=== PATIENT | female | born 1945 | race Caucasian/White ===

== ENCOUNTER 2017-04-13 18:16 | Emergency (ER) | payer MEDICARE, MEDICAID ==
--- NOTE | 2017-04-13 19:43 | ED Physician Documentation ---
PD HPI NVD - Stated complaint Stated Complaint: D/NAUSEA - Chief complaint Chief Complaint: Abd Pain - History obtained from History obtained from: Patient - History of Present Illness Timing - onset: Today Timing - details: Waxing and waning Review of Systems Constitutional: reports: Myalgias. denies: Fever, Chills Ears: denies: Drainage/discharge Nose: denies: Rhinorrhea / runny nose, Congestion Throat: denies: Sore throat, Swollen tonsils Cardiac: denies: Chest pain / pressure Respiratory: denies: Dyspnea, Cough GI: denies: Nausea Skin: denies: Rash, Lesions Neurologic: reports: Generalized weakness. denies: Focal weakness, Numbness, Near syncope PD PAST MEDICAL HISTORY - Past Medical History Past Medical History: Yes Cardiovascular: Hypertension, Valve disorder Respiratory: Asthma Neuro: Seizure disorder Endocrine/Autoimmune: HyPERthyroidism GI: Ulcers Psych: Depression, Anxiety Musculoskeletal: Osteoarthritis - Past Surgical History Past Surgical History: Yes General: Cholecystectomy HEENT: Cataracts, Tonsil/Adenoidectomy - Present Medications Home Medications: Ambulatory Orders Medication Instructions Recorded Confirmed Furosemide [Lasix] 20 mg PO DAILY 03/23/13 04/13/17 Primidone 250 mg PO BID 03/23/13 04/13/17 Aripiprazole [Abilify] 30 mg PO DAILY 04/28/14 04/13/17 Isosorbide Dinitrate 10 mg PO TID 04/28/14 04/13/17 Propranolol [Inderal] 10 mg PO BID 04/28/14 04/13/17 Clorazepate Dipotassium [Tranxene 7.5 mg PO BID 12/16/14 04/13/17 T-Tab] Hydroxyzine Pamoate 50 mg PO DAILY 04/25/16 04/13/17 Cephalexin [Keflex] 500 mg PO QID #20 capsule 04/13/17 Ondansetron HCl [Zofran] 4 mg PO Q6H PRN #15 tablet 04/13/17 - Allergies Allergies/Adverse Reactions: Allergies Allergy/AdvReac Type Severity Reaction Status Date / Time phenobarbital Allergy Intermediate Anxiety Verified 04/13/17 18:28 Penicillins Allergy swelling Verified 04/13/17 18:28 Sulfa (Sulfonamide Allergy Rash Verified 04/13/17 18:28 Antibiotics) Tetracyclines Allergy Anxiety Verified 04/13/17 18:28 - Social History Does the pt smoke?: No Smoking Status: Never smoker Does the pt drink ETOH?: No Does the pt have substance abuse?: No - Immunizations Immunizations are current?: Yes - POLST Patient has POLST: No PD ED PE NORMAL - Vitals Vital signs reviewed: Yes - General General: Alert and oriented X 3, No acute distress, Well developed/nourished - HEENT HEENT: Pharynx benign - Neck Neck: Supple, no meningeal sign - Cardiac Cardiac: RRR, No murmur - Respiratory Respiratory: Clear bilaterally - Abdomen Abdomen: Normal bowel sounds, Soft, Non tender, Non distended, No organomegaly, Other (moderately obese) - Back Back: No CVA TTP - Derm Derm: Normal color, Warm and dry - Extremities Extremities: No tenderness to palpate, No edema, No calf tenderness / cord - Neuro Neuro: Alert and oriented X 3, No motor deficit, Normal speech - Psych Psych: No: Normal affect (rather flat affect but conversant. ) Results - Vitals Vitals: Oxygen O2 Source Room air - Labs Labs: Microbiology 04/13/17 20:33 Urine Culture - Preliminary Urine,Clean Catch No growth Laboratory Tests 04/13/17 04/13/17 04/13/17 20:12 20:19 20:33 WBC 10.7 RBC 4.83 Hgb 15.1 Hct 44.1 MCV 91.3 MCH 31.3 H MCHC 34.3 RDW 13.0 Plt Count 283 MPV 7.3 L Neut # 4.6 Lymph # 4.6 H [place] # 1.1 H Eos # 0.3 Baso # 0.1 Absolute Nucleated RBC 0.00 Nucleated RBCs 0.0 Sodium 136 Potassium 3.9 Chloride 100 L Carbon Dioxide 27 Anion Gap 9.0 BUN 37 H Creatinine 0.7 Estimated GFR (MDRD) 83 L Glucose 99 Calcium 9.8 Magnesium 2.2 Total Bilirubin 0.4 AST 25 ALT 21 Alkaline Phosphatase 64 Total Protein 8.2 Albumin 4.2 Globulin 4.0 Albumin/Globulin Ratio 1.1 Lipase 36 Urine Color YELLOW Urine Clarity CLEAR Urine pH 7.0 Ur Specific [place] <=1.005 Urine Protein NEGATIVE Urine Glucose (UA) NEGATIVE Urine Ketones NEGATIVE Urine Occult Blood NEGATIVE Urine Nitrite NEGATIVE Urine Bilirubin NEGATIVE Urine Urobilinogen 0.2 (NORMAL) Ur Leukocyte Esterase SMALL H Urine RBC 0-5 Urine WBC 11-25 H Ur Squamous Epith Cells NONE SEEN Urine Bacteria Few Ur Microscopic Review INDICATED Urine Culture Comments INDICATED PD MEDICAL DECISION MAKING - ED course Complexity details: reviewed old records, reviewed results, considered differential, d/w patient Departure - Departure Disposition: 01 Home, Self Care Clinical Impression: Nausea UTI (urinary tract infection) Qualifiers: Urinary tract infection type: acute cystitis Hematuria presence: without hematuria Qualified Code(s): N30.00 - Acute cystitis without hematuria Condition: Stable Record reviewed to determine appropriate education?: Yes Instructions: ED UTI Cystitis Female Follow-Up: Devon Holden MD [Primary Care Provider] - Prescriptions: Cephalexin [Keflex] 500 mg PO QID #20 capsule Ondansetron HCl [Zofran] 4 mg PO Q6H PRN #15 tablet PRN Reason: Nausea / Vomiting Comments: Ondansetron if needed for nausea. Frequent fluids for good hydration. You do have a mild bladder infection and that may likely be causing the nausea today. Cephalexin 4 times a day for the next 5 days for that. Recheck if not improving over the next couple of days. Return sooner if worse. Discharge Date/Time: 04/13/17 22:03
[2017-04-13] MEDS ORDERED: ONDANSETRON ODT 4 MG TABLET TL STA (20:19)
[2017-04-13] MEDS ORDERED: ONDANSETRON ODT 4 MG TABLET ONE (20:39)
[2017-04-13 20:48] LABS: BASOPHILS # (AUTO) 0.1 10^3/uL (0.0-0.1); EOSINOPHILS # (AUTO) 0.3 10^3/uL (0.0-0.7); MEAN CORPUSCULAR HEMOGLOBIN 31.3 pg (27.0-31.0)
[2017-04-13 20:49] LABS: BASOPHILS % (AUTO) 0.7 %; EOSINOPHILS % (AUTO) 2.9 %; HCT - HEMATOCRIT 44.1 % (37.0-47.0); HGB - HEMOGLOBIN 15.1 g/dL (12.0-16.0); LYMPHOCYTES # (AUTO) 4.6 10^3/uL (1.5-3.5); LYMPHOCYTES % (AUTO) 43.1 %; MEAN CORPUSCULAR HGB CONC 34.3 g/dL (32.0-36.0); MEAN CORPUSCULAR VOLUME 91.3 fL (81.0-99.0); MEAN PLATELET VOLUME 7.3 fL (7.9-10.8); MONOCYTES # (AUTO) 1.1 10^3/uL (0.0-1.0); MONOCYTES % (AUTO) 10.4 %; NEUTROPHILS # (AUTO) 4.6 10^3/uL (1.5-6.6); NEUTROPHILS % (AUTO) 42.9 %; RED BLOOD COUNT 4.83 10^6/uL (4.20-5.40); UNCORRECTED WHITE BLOOD COUNT 10.7 x10^3/uL; WHITE BLOOD COUNT 10.7 x10^3/uL (4.8-10.8)
[2017-04-13 20:53] LABS: BILIRUBIN,URINE NEGATIVE (NEGATIVE)
[2017-04-13 20:55] LABS: UA w/ MICROSCOPIC CHARGE YES
[2017-04-13 21:00] LABS: ALBUMIN/GLOBULIN RATIO 1.1 (1.0-2.2); BILIRUBIN,TOTAL 0.4 mg/dL (0.2-1.0); CALCIUM 9.8 mg/dL (8.5-10.3); CREATININE 0.7 mg/dL (0.4-1.0); MAGNESIUM 2.2 mg/dL (1.7-2.8); POTASSIUM 3.9 mmol/L (3.5-5.0); TOTAL PROTEIN 8.2 g/dL (6.7-8.2)
[2017-04-13 21:11] LABS: UR CULTURE IF IND INDICATED
[2017-04-13 21:44] VITALS: BP 119/56
[2017-04-13] MEDS ORDERED: ONDANSETRON ODT 4 MG Prepack 2 TL PRN (21:45)
[2017-04-13] MEDS ORDERED: CEPHALEXIN 250 MG CAPSULE PO STA (21:45)
[2017-04-13] MEDS ORDERED: CEPHALEXIN 250 MG CAPSULE PO ONE (21:58)
[2017-04-13] MEDS ORDERED: ONDANSETRON ODT 4 MG Prepack 2 TL ONE (21:58)
== END 2017-04-13 22:03 | disposition home or self-care (01) ==
LOC: ED 18:16
DX: R11.0 Nausea (principal); N30.00 Acute cystitis without hematuria; I10 Essential (primary) hypertension
CPT/HCPCS: 36415; 80053; 81001; 83690; 83735; 85025; 87086; 99283; A9270; Q0162; 81003

== ENCOUNTER 2017-08-08 08:36 | Outpatient (CLI) | payer MEDICARE, MEDICAID | END 2017-08-08 08:37 | disposition EMS.NT | LOC: EMS 08:36 | PROVIDERS: ATTEND Surgery | DX: R19.7 Diarrhea, unspecified (principal) ==

== ENCOUNTER 2017-10-15 11:27 | Outpatient (CLI) | payer MEDICARE, MEDICAID ==
[2017-10-15 19:02] LABS: MEAN CORPUSCULAR HEMOGLOBIN 31.6 pg (27.0-31.0); MEAN CORPUSCULAR HGB CONC 33.2 g/dL (32.0-36.0); RED BLOOD COUNT 4.44 10^6/uL (4.20-5.40); WHITE BLOOD COUNT 10.5 x10^3/uL (4.8-10.8)
[2017-10-15 19:15] LABS: CALCIUM 9.3 mg/dL (8.5-10.3); CREATININE 0.7 mg/dL (0.4-1.0)
== END 2017-10-15 11:28 | disposition home or self-care (01) ==
LOC: LAB.WCP 11:27
PROVIDERS: ATTEND Physician Assistant Medical
DX: I50.9 Heart failure, unspecified (principal)
CPT/HCPCS: 36415; 80048; 83880

== ENCOUNTER 2017-10-23 07:28 | Outpatient (CLI) | payer MEDICARE, MEDICAID | END 2017-10-23 07:29 | disposition EMS.NT | LOC: EMS 07:28 | PROVIDERS: ATTEND Surgery | DX: R00.1 Bradycardia, unspecified (principal) ==

== ENCOUNTER 2017-10-23 10:17 | Outpatient (CLI) | payer MEDICARE, MEDICAID | END 2017-10-23 10:18 | disposition critical access hospital (66) | LOC: EMS 10:17 | PROVIDERS: ATTEND Surgery | DX: R10.9 Unspecified abdominal pain (principal) | CPT/HCPCS: A0425; A0429 ==

== ENCOUNTER 2017-10-23 10:34 | Emergency (ER) | payer MEDICARE, MEDICAID ==
[2017-10-23] MEDS ORDERED: LIDOCAINE VISCOUS 2% 15 ML UDC MM STA (12:25)
[2017-10-23] MEDS ORDERED: MAG HYDROX/AL HYDROX/SIMETH 30 ML UDC PO STA (12:25)
--- NOTE | 2017-10-23 12:27 | ED Physician Documentation ---
PD HPI ABD PAIN - Stated complaint Stated Complaint: ABD PX - Chief complaint Chief Complaint: Abd Pain - History obtained from History obtained from: Patient - History of Present Illness Timing - onset: Other (72-year-old woman chronic psychiatric disorder and stable delusions presents complaining of upper abdominal pain that started a few hours ago after eating a beef and green burrito and a glass of milk. Reportedly the paramedics have been out to her house for the last couple of days because she thought she was being poisoned, although she does not mention this to me. To me she is at her psychiatric baseline which is delusional but very cooperative. She is nauseous but has not vomited. She had a remote cholecystectomy but no other abdominal surgeries.) Review of Systems Constitutional: denies: Fever, Chills Cardiac: denies: Chest pain / pressure, Palpitations Respiratory: denies: Dyspnea, Cough GI: reports: Abdominal Pain, Nausea. denies: Vomiting, Constipation, Diarrhea, Hematemesis, Bloody / black stool PD PAST MEDICAL HISTORY - Past Medical History Past Medical History: Yes Cardiovascular: Hypertension, Valve disorder Respiratory: Asthma Neuro: Seizure disorder Endocrine/Autoimmune: HyPERthyroidism GI: Ulcers Psych: Depression, Anxiety Musculoskeletal: Osteoarthritis Other Past Medical History: Sabrina - Past Surgical History Past Surgical History: Yes General: Cholecystectomy HEENT: Cataracts, Tonsil/Adenoidectomy - Present Medications Home Medications: Ambulatory Orders Medication Instructions Recorded Confirmed Furosemide [Lasix] 20 mg PO DAILY 03/23/13 04/13/17 Primidone 250 mg PO BID 03/23/13 04/13/17 Aripiprazole [Abilify] 30 mg PO DAILY 04/28/14 04/13/17 Isosorbide Dinitrate 10 mg PO TID 04/28/14 04/13/17 Propranolol [Inderal] 10 mg PO BID 04/28/14 04/13/17 Clorazepate Dipotassium [Tranxene 7.5 mg PO BID 12/16/14 04/13/17 T-Tab] Hydroxyzine Pamoate 50 mg PO DAILY 04/25/16 04/13/17 Cephalexin [Keflex] 500 mg PO QID #20 capsule 04/13/17 Ondansetron HCl [Zofran] 4 mg PO Q6H PRN #15 tablet 04/13/17 - Allergies Allergies/Adverse Reactions: Allergies Allergy/AdvReac Type Severity Reaction Status Date / Time phenobarbital Allergy Intermediate Anxiety Verified 10/23/17 10:47 Penicillins Allergy swelling Verified 10/23/17 10:47 Sulfa (Sulfonamide Allergy Rash Verified 10/23/17 10:47 Antibiotics) Tetracyclines Allergy Anxiety Verified 10/23/17 10:47 - Social History Does the pt smoke?: No Smoking Status: Never smoker Does the pt drink ETOH?: No Does the pt have substance abuse?: No - Immunizations Immunizations are current?: Yes - POLST Patient has POLST: No PD ED PE NORMAL - Vitals Vital signs reviewed: Yes - General General: Alert and oriented X 3, No acute distress - HEENT HEENT: Pharynx benign - Neck Neck: Supple, no meningeal sign, No bony TTP - Cardiac Cardiac: RRR, No murmur - Respiratory Respiratory: No respiratory distress, Clear bilaterally - Abdomen Abdomen: Normal bowel sounds, Soft, Non tender - Back Back: No CVA TTP, No spinal TTP - Extremities Extremities: No edema, No calf tenderness / cord - Neuro Neuro: Alert and oriented X 3, Normal speech Results - Vitals Vitals: Vital Signs - 24 hr 10/23/17 10/23/17 10/23/17 10:49 12:00 12:13 Temperature 36.8 C 36.8 C Heart Rate 77 60 66 Respiratory 20 18 Rate Blood Pressure 125/50 L 97/50 L 114/52 L O2 Saturation 97 98 Oxygen O2 Source Room air - EKG (time done) 1152 Rate: Rate (enter#) (69) Rhythm: NSR Sun: Normal Intervals: Normal IA QRS: Normal Ischemia: Normal ST segments Computer interpretation: Agree with computer - Labs Labs: Laboratory Tests 10/23/17 10/23/17 10/23/17 13:00 13:00 13:00 WBC 12.3 H RBC 4.50 Hgb 14.5 Hct 42.5 MCV 94.5 MCH 32.3 H MCHC 34.2 RDW 13.7 Plt Count 285 MPV 7.3 L Neut # 7.6 H Lymph # 3.3 [place] # 1.2 H Eos # 0.1 Baso # 0.1 Absolute Nucleated RBC 0.00 Nucleated RBC % 0.0 Sodium 137 Potassium 3.6 Chloride 101 Carbon Dioxide 28 Anion Gap 8.0 BUN 30 H Creatinine 0.8 Estimated GFR (MDRD) 71 L Glucose 104 H Calcium 9.1 Total Bilirubin 0.2 AST 28 ALT 23 Alkaline Phosphatase 60 Troponin I < 0.04 Total Protein 7.7 Albumin 4.1 Globulin 3.6 Albumin/Globulin Ratio 1.1 Lipase 20 L PD MEDICAL DECISION MAKING - ED course ED course: 72-year-old chronically delusional woman comes in with upper abdominal pain and concern for poisoning. She has a benign examination and her labs are relatively unremarkable with baseline BUN. Departure - Departure Disposition: 01 Home, Self Care Clinical Impression: Abdominal pain Qualifiers: Abdominal location: upper abdomen, unspecified Qualified Code(s): R10.10 - Upper abdominal pain, unspecified Condition: Good Record reviewed to determine appropriate education?: Yes Instructions: Abdominal Pain Comments: Call your doctor to arrange a follow-up appointment, make the next available appointment. In the interim, return anytime if worse or if new symptoms develop.
[2017-10-23 13:09] LABS: BASOPHILS # (AUTO) 0.1 10^3/uL (0.0-0.1); BASOPHILS % (AUTO) 0.7 %; EOSINOPHILS # (AUTO) 0.1 10^3/uL (0.0-0.7); EOSINOPHILS % (AUTO) 1.1 %; HGB - HEMOGLOBIN 14.5 g/dL (12.0-16.0); LYMPHOCYTES # (AUTO) 3.3 10^3/uL (1.5-3.5); LYMPHOCYTES % (AUTO) 26.7 %; MEAN CORPUSCULAR HEMOGLOBIN 32.3 pg (27.0-31.0); MEAN CORPUSCULAR HGB CONC 34.2 g/dL (32.0-36.0); MEAN CORPUSCULAR VOLUME 94.5 fL (81.0-99.0); MEAN PLATELET VOLUME 7.3 fL (7.9-10.8); MONOCYTES # (AUTO) 1.2 10^3/uL (0.0-1.0); MONOCYTES % (AUTO) 9.7 %; NEUTROPHILS # (AUTO) 7.6 10^3/uL (1.5-6.6); NEUTROPHILS % (AUTO) 61.8 %; PLT - PLATELET COUNT 285 10^3/uL (130-450); RED CELL DISTRIBUTION WIDTH 13.7 % (12.0-15.0); WHITE BLOOD COUNT 12.3 x10^3/uL (4.8-10.8)
[2017-10-23 13:21] LABS: ALBUMIN 4.1 g/dL (3.2-5.5); ALBUMIN/GLOBULIN RATIO 1.1 (1.0-2.2); BILIRUBIN,TOTAL 0.2 mg/dL (0.2-1.0); CALCIUM 9.1 mg/dL (8.5-10.3); CREATININE 0.8 mg/dL (0.4-1.0); TOTAL PROTEIN 7.7 g/dL (6.7-8.2)
[2017-10-23 13:41] VITALS: BP 109/48
== END 2017-10-23 14:00 | disposition home or self-care (01) ==
LOC: EDUNIT# → ED 10:34
DX: R10.10 Upper abdominal pain, unspecified (principal); I10 Essential (primary) hypertension; E05.90 Thyrotoxicosis, unspecified without thyrotoxic crisis or storm
CPT/HCPCS: 36415; 80053; 83690; 84484; 85025; 93005; 99283; A9270

== ENCOUNTER 2017-10-27 08:39 | Outpatient (CLI) | payer MEDICARE, MEDICAID ==
--- NOTE | 2017-10-27 12:32 | XRAY Report ---
MODIFIED BARIUM SWALLOW: 10/27/2017 CLINICAL INDICATION: Dysphagia. FINDINGS: Various consistencies of barium were prepared and administered in conjunction with speech pathology. There was no evidence of penetration or aspiration with any administered consistency. Calcified submandibular lymph node is noted, compatible with previous infection. Please also refer to full report from speech pathology for further findings. IMPRESSION: NO EVIDENCE OF PENETRATION OR ASPIRATION. FLUOROSCOPY TIME: 35 SECONDS; 1 SPOT IMAGE OBTAINED (CINE FLUOROSCOPY RECORDED). TD: 10/27/2017 12:31
== END 2017-10-27 08:40 | disposition home or self-care (01) ==
LOC: DI 08:39
PROVIDERS: ATTEND Internal Medicine Gastroenterology
DX: R13.10 Dysphagia, unspecified (principal)
CPT/HCPCS: 74230; 92611; G8996; G8997; G8998

== ENCOUNTER 2018-01-01 18:14 | Outpatient (CLI) | payer MEDICARE, MEDICAID | END 2018-01-01 18:15 | disposition EMS.NT | LOC: EMS 18:14 | PROVIDERS: ATTEND Surgery | DX: R60.0 Localized edema (principal) ==

== ENCOUNTER 2018-01-06 08:00 | Outpatient (CLI) | payer MEDICARE, MEDICAID ==
[2018-01-06 19:38] LABS: THYROID STIMULATING HORMONE 0.97 uIU/mL (0.34-5.60)
== END 2018-01-06 08:01 | disposition home or self-care (01) ==
LOC: LAB.WCP 08:00
PROVIDERS: ATTEND Family Medicine
DX: G62.9 Polyneuropathy, unspecified (principal); I50.9 Heart failure, unspecified
CPT/HCPCS: 36415; 82607; 83921; 84443

== ENCOUNTER 2018-02-18 08:00 | Outpatient (CLI) | payer MEDICARE, MEDICAID ==
[2018-02-18 19:02] LABS: HGB - HEMOGLOBIN 14.7 g/dL (12.0-16.0); MEAN CORPUSCULAR HEMOGLOBIN 32.6 pg (27.0-31.0); MEAN CORPUSCULAR HGB CONC 33.6 g/dL (32.0-36.0); MEAN CORPUSCULAR VOLUME 97.1 fL (81.0-99.0); MEAN PLATELET VOLUME 7.9 fL (7.9-10.8); RED BLOOD COUNT 4.51 10^6/uL (4.20-5.40); RED CELL DISTRIBUTION WIDTH 13.5 % (12.0-15.0); WHITE BLOOD COUNT 8.7 x10^3/uL (4.8-10.8)
[2018-02-18 19:15] LABS: CALCIUM 9.3 mg/dL (8.5-10.3); CREATININE 0.7 mg/dL (0.4-1.0)
== END 2018-02-18 08:01 | disposition home or self-care (01) ==
LOC: LAB.WCP 08:00
PROVIDERS: ATTEND Family Medicine
DX: R60.0 Localized edema (principal)
CPT/HCPCS: 36415; 80048; 81001; 85027

== ENCOUNTER 2018-02-23 11:50 | Outpatient (CLI) | payer MEDICARE, MEDICAID ==
[2018-02-23 18:57] LABS: BILIRUBIN,URINE NEGATIVE (NEGATIVE); GLUCOSE, URINE (UA) NEGATIVE (NEGATIVE); KETONES,URINE (UA) NEGATIVE (NEGATIVE); LEUKOCYTE ESTERASE, URINE NEGATIVE (NEGATIVE); NITRITE,URINE NEGATIVE (NEGATIVE); OCCULT BLOOD,URINE NEGATIVE (NEGATIVE); PROTEIN,URINE NEGATIVE (NEGATIVE); UROBILINOGEN,URINE 0.2 (NORMAL) E.U./dL (NORMAL)
[2018-02-23 19:02] LABS: CLARITY,URINE CLEAR (CLEAR)
[2018-02-23 19:05] LABS: BACTERIA,URINE None Seen /HPF (None Seen); RBC,URINE 0-5 /HPF (0-5); SQUAMOUS EPITHELIAL CELL,UR RARE Squamous (<= Few)
== END 2018-02-23 11:51 | disposition home or self-care (01) ==
LOC: LAB.R 11:50
PROVIDERS: ATTEND Family Medicine
DX: R60.0 Localized edema (principal)
CPT/HCPCS: 81001

== ENCOUNTER 2018-03-19 10:46 | Outpatient (CLI) | payer MEDICARE, MEDICAID | END 2018-03-19 10:47 | disposition home or self-care (01) | LOC: DI 10:46 | PROVIDERS: ATTEND Family Medicine | DX: I50.9 Heart failure, unspecified (principal); R60.0 Localized edema | CPT/HCPCS: 93306 ==

== ENCOUNTER 2018-03-25 14:40 | Outpatient (CLI) | payer MEDICARE, MEDICAID ==
--- NOTE | 2018-03-26 09:38 | Ultrasound Report ---
Procedure Date: 03/25/2018 Accession Number: [id number] / [id number] Procedure: US - Ankle Brachial Index CPT Code: FULL RESULT: EXAM: ANKLE-BRACHIAL INDEX EXAM DATE: 03/25/2018 04:31 PM. CLINICAL HISTORY: Lower extremity edema, bilateral. COMPARISON: None. TECHNIQUE: Limited spectral analysis of the bilateral posterior tibial and dorsalis pedis arteries performed. Standard ankle-brachial index acquired. FINDINGS: Irregular cardiac rate and rhythm. Right and left posterior tibial arteries are biphasic and measured 89 and 84 cm/sec respectively. Right and left dorsalis pedis arteries are biphasic and measure 71 and 75 cm/sec. Right and left brachial pressures are 108 and 116 mmHg respectively. Right and left posterior tibial pressures are 125 and 150 mmHg respectively. Right and left ankle brachial index are 1.08 and 1.29 respectively. IMPRESSION: 1. Right ankle brachial index is 1.08. 2. Left ankle-brachial index is 1.29. RADIA
== END 2018-03-25 14:41 | disposition home or self-care (01) ==
LOC: DI 14:40
PROVIDERS: ATTEND Family Medicine
DX: R60.0 Localized edema (principal)
CPT/HCPCS: 93922

== ENCOUNTER 2018-05-04 07:15 | Outpatient (CLI) | payer MEDICARE, MEDICAID ==
[2018-05-04 13:48] LABS: BILIRUBIN,URINE NEGATIVE (NEGATIVE); GLUCOSE, URINE (UA) NEGATIVE (NEGATIVE); KETONES,URINE (UA) NEGATIVE (NEGATIVE); LEUKOCYTE ESTERASE, URINE LARGE (NEGATIVE); NITRITE,URINE NEGATIVE (NEGATIVE); OCCULT BLOOD,URINE NEGATIVE (NEGATIVE); PROTEIN,URINE NEGATIVE (NEGATIVE); UROBILINOGEN,URINE 0.2 (NORMAL) E.U./dL (NORMAL)
[2018-05-04 13:59] LABS: BACTERIA,URINE None Seen /HPF (None Seen); CLARITY,URINE CLEAR (CLEAR); RBC,URINE 0-5 /HPF (0-5); SQUAMOUS EPITHELIAL CELL,UR RARE Squamous (<= Few)
== END 2018-05-04 07:16 | disposition home or self-care (01) ==
LOC: LAB.WCP 07:15
PROVIDERS: ATTEND Family Medicine
DX: R60.0 Localized edema (principal)
CPT/HCPCS: 81001

== ENCOUNTER 2018-05-26 09:41 | Outpatient (CLI) | payer MEDICARE, MEDICAID ==
[2018-05-26 14:07] LABS: CALCIUM 9.5 mg/dL (8.5-10.3); CREATININE 0.8 mg/dL (0.4-1.0)
== END 2018-05-26 09:42 | disposition home or self-care (01) ==
LOC: LAB.WCP 09:41
PROVIDERS: ATTEND Family Medicine
DX: R60.0 Localized edema (principal); L21.9 Seborrheic dermatitis, unspecified
CPT/HCPCS: 36415; 80048

== ENCOUNTER 2018-09-14 08:15 | Outpatient (CLI) | payer MEDICARE, MEDICAID ==
[2018-09-14 12:23] LABS: BASOPHILS # (AUTO) 0.1 10^3/uL (0.0-0.1); BASOPHILS % (AUTO) 0.7 %; EOSINOPHILS # (AUTO) 0.2 10^3/uL (0.0-0.7); HGB - HEMOGLOBIN 13.7 g/dL (12.0-16.0); LYMPHOCYTES % (AUTO) 33.1 %; MEAN CORPUSCULAR HEMOGLOBIN 33.3 pg (27.0-31.0); MEAN CORPUSCULAR HGB CONC 34.8 g/dL (32.0-36.0); MEAN CORPUSCULAR VOLUME 95.7 fL (81.0-99.0); MEAN PLATELET VOLUME 8.2 fL (7.9-10.8); MONOCYTES # (AUTO) 0.8 10^3/uL (0.0-1.0); MONOCYTES % (AUTO) 8.9 %; NEUTROPHILS # (AUTO) 5.1 10^3/uL (1.5-6.6); NEUTROPHILS % (AUTO) 55.3 %; PLT - PLATELET COUNT 282 10^3/uL (130-450); RED BLOOD COUNT 4.12 10^6/uL (4.20-5.40); RED CELL DISTRIBUTION WIDTH 13.5 % (12.0-15.0); WHITE BLOOD COUNT 9.1 x10^3/uL (4.8-10.8)
[2018-09-14 13:13] LABS: CALCIUM 9.7 mg/dL (8.5-10.3); CARBON DIOXIDE - CO2 28 mmol/L (21-32); CHLORIDE 96 mmol/L (101-111); GLUCOSE 104 mg/dL (70-100); SODIUM 136 mmol/L (135-145)
[2018-09-14 14:11] LABS: ALBUMIN/GLOBULIN RATIO 1.1 (1.0-2.2); ALKALINE PHOSPHATASE 80 IU/L (42-121); ALT ALANINE AMINOTRANSFERASE 26 IU/L (10-60); AST ASPARTATE AMINOTRANSFERASE 31 IU/L (10-42); BILIRUBIN,TOTAL 0.6 mg/dL (0.2-1.0); BUN - BLOOD UREA NITROGEN 24 mg/dL (6-20); CHOL/HDL RATIO 2.9 (<4.4); CHOLESTEROL 146 mg/dL; CREATININE 0.7 mg/dL (0.4-1.0); GFR - MDRD 82 (>89); HDL CHOLESTEROL 51 mg/dL; LDL CHOLESTEROL,CALCULATED 81 mg/dL; LDL/HDL RATIO 1.6 (<4.4); TOTAL PROTEIN 7.7 g/dL (6.7-8.2); VLDL CHOLESTEROL 14 mg/dL
== END 2018-09-14 23:59 | disposition home or self-care (01) ==
LOC: LAB.WCP 08:15
PROVIDERS: ATTEND Family Medicine
DX: R30.0 Dysuria (principal); R60.0 Localized edema; L21.9 Seborrheic dermatitis, unspecified; F20.9 Schizophrenia, unspecified
CPT/HCPCS: 36415; 80053; 80061; 83721; 84443; 85025

== ENCOUNTER 2018-10-05 12:10 | Outpatient (CLI) | payer MEDICARE, MEDICAID | END 2018-10-05 12:11 | disposition home or self-care (01) | LOC: LAB.WCP 12:10 | PROVIDERS: ATTEND Family Medicine | DX: R60.9 Edema, unspecified (principal) ==

== ENCOUNTER 2018-10-22 08:00 | Outpatient (CLI) | payer MEDICARE, MEDICAID ==
[2018-10-22 13:02] LABS: CALCIUM 9.4 mg/dL (8.5-10.3); CREATININE 0.7 mg/dL (0.4-1.0)
== END 2018-10-22 23:59 ==
LOC: LAB.WCP 08:00
PROVIDERS: ATTEND Family Medicine
DX: R60.9 Edema, unspecified (principal)
CPT/HCPCS: 36415; 80048

== ENCOUNTER 2018-11-26 13:23 | Outpatient (CLI) | payer MEDICARE, MEDICAID | END 2018-11-26 23:59 | disposition home or self-care (01) | LOC: LAB.R 13:23 | PROVIDERS: ATTEND Family Medicine | DX: L03.116 Cellulitis of left lower limb (principal); L84 Corns and callosities | CPT/HCPCS: 87070; 87077; 87181; 87205 ==

== ENCOUNTER 2019-01-19 15:59 | Outpatient (CLI) | payer MEDICARE, MEDICAID | END 2019-01-19 16:00 | disposition critical access hospital (66) | LOC: EMS 15:59 | PROVIDERS: ATTEND Surgery | DX: R60.0 Localized edema (principal); R06.02 Shortness of breath; M79.676 Pain in unspecified toe(s) | CPT/HCPCS: A0425; A0429 ==

== ENCOUNTER 2019-01-19 16:23 | Emergency (ER) | payer MEDICARE, MEDICAID ==
[2019-01-19 16:28] VITALS: BP 111/46
--- NOTE | 2019-01-19 16:30 | ED Physician Documentation ---
History of Present Illness - Stated complaint Stated Complaint: L LEG SWELLING - Chief complaint Chief Complaint: General - History obtained from History obtained from: Patient, EMS - History of Present Illness Timing: Other (73-year-old woman with chronic psychosis presents with a nonhealing wound to the bottom of the left foot with left leg swelling. She is unable to really give me a time course to how long this is been going on but she seems to think it has been going on for a long time. She is been on 3 days of Cipro without any improvement. No fevers.) Review of Systems Ten Systems: 10 systems reviewed and negative Constitutional: denies: Fever, Chills Cardiac: denies: Chest pain / pressure, Palpitations Respiratory: denies: Dyspnea, Cough GI: denies: Abdominal Pain PD PAST MEDICAL HISTORY - Past Medical History Cardiovascular: Hypertension, Valve disorder Respiratory: Asthma Neuro: Seizure disorder Endocrine/Autoimmune: HyPERthyroidism GI: Ulcers : Incontinence Psych: Depression, Anxiety, Schizophrenia Musculoskeletal: Osteoarthritis - Past Surgical History Past Surgical History: Yes General: Cholecystectomy HEENT: Cataracts, Tonsil/Adenoidectomy - Present Medications Home Medications: Ambulatory Orders Medication Instructions Recorded Confirmed Primidone 250 mg PO BID 03/23/13 01/19/19 Aripiprazole [Abilify] 30 mg PO DAILY 04/28/14 01/19/19 Isosorbide Dinitrate 30 mg PO DAILY 04/28/14 01/19/19 Propranolol [Inderal] 10 mg PO BID 04/28/14 01/19/19 Hydroxyzine Pamoate 50 mg PO PRN PRN 04/25/16 01/19/19 Bumetanide 2 mg PO TID 12/18/18 01/19/19 Folic Acid 1 mg PO DAILY 12/18/18 01/19/19 Pimecrolimus [Elidel] 30 gm TOP PRN PRN 12/18/18 01/19/19 traZODone [Desyrel] 25 mg PO QPM 12/18/18 01/19/19 Ciprofloxacin HCl [Cipro] 500 mg PO BID 01/19/19 01/19/19 Clindamycin HCl [Clindamycin 300MG 300 mg PO Q6H #28 capsule 01/19/19 CAP] - Allergies Allergies/Adverse Reactions: Allergies Allergy/AdvReac Type Severity Reaction Status Date / Time phenobarbital Allergy Intermediate Anxiety Verified 01/19/19 16:28 Penicillins Allergy swelling Verified 01/19/19 16:28 Sulfa (Sulfonamide Allergy Rash Verified 01/19/19 16:28 Antibiotics) Tetracyclines Allergy Anxiety Verified 01/19/19 16:28 - Social History Does the pt smoke?: No Smoking Status: Never smoker Does the pt drink ETOH?: No Does the pt have substance abuse?: No - Immunizations Immunizations are current?: Yes - POLST Patient has POLST: No PD ED PE NORMAL - Vitals Vital signs reviewed: Yes - General General: Alert and oriented X 3, No acute distress - HEENT HEENT: PERRL, EOMI - Neck Neck: Supple, no meningeal sign, No bony TTP - Cardiac Cardiac: RRR, No murmur - Respiratory Respiratory: No respiratory distress, Clear bilaterally - Abdomen Abdomen: Soft, Non tender - Back Back: No CVA TTP, No spinal TTP - Extremities Extremities: Other (There is a macerated ulcer on the bottom of the left foot that is not deep at all. There is redness and swelling of the bottom of the left foot and then swelling but without significant cellulitis of the left calf.) - Neuro Neuro: Alert and oriented X 3, Normal speech - Psych Psych: Normal mood, Other (Blunted affect but appropriate) Results - Vitals Vitals: Vital Signs - 24 hr 01/19/19 16:22 Temperature 37.0 C Heart Rate 72 Respiratory 20 Rate Blood Pressure 111/46 L O2 Saturation 100 Oxygen O2 Source Room air - Labs Labs: Laboratory Tests 01/19/19 01/19/19 01/19/19 16:41 16:41 16:41 WBC 8.0 RBC 4.20 Hgb 13.5 Hct 40.1 MCV 95.5 MCH 32.1 H MCHC 33.6 RDW 13.8 Plt Count 280 MPV 7.8 L Neut # (Auto) 4.1 Lymph # (Auto) 2.8 [place] # (Auto) 0.8 Eos # (Auto) 0.2 Baso # (Auto) 0.1 Absolute Nucleated RBC 0.00 Nucleated RBC % 0.0 ESR 54 H Sodium 138 Potassium 3.1 L Chloride 97 L Carbon Dioxide 30 Anion Gap 11.0 BUN 27 H Creatinine 0.8 Estimated GFR (MDRD) 71 L Glucose 84 Calcium 8.7 Total Bilirubin 0.4 AST 24 ALT 26 Alkaline Phosphatase 78 C-Reactive Protein < 1.0 Total Protein 7.9 Albumin 4.0 Globulin 3.9 Albumin/Globulin Ratio 1.0 Lipase 42 - Rads (name of study) L foot 3v Radiology: EMP read contemporaneously ([place] soft tissue swelling, third MTP dislocation and hypoplasia of the phalanges suggesting chronic or developmental abnormality versus remote trauma.) LLE duplex Radiology: Prelim report reviewed PD MEDICAL DECISION MAKING - ED course ED course: 73-year-old woman with left foot cellulitis and asymmetric edema of the left leg. She has chronic changes of the third MTP for which she is seeing a automated logistics specialist. She says the deformity there is not acute. She would like another trial at outpatient management prior to admission even though she is been on Cipro for a few days and she is switched to clindamycin. Departure - Departure Disposition: 01 Home, Self Care Clinical Impression: Cellulitis of left foot Condition: Good Record reviewed to determine appropriate education?: Yes Instructions: Cellulitis Dc Prescriptions: Clindamycin HCl [Clindamycin 300MG CAP] 300 mg PO Q6H #28 capsule Comments: Keep your left foot elevated. When not up and around keep it open to air so it can dry out. Follow-up with Dr. Holden in 2 to 3 days for recheck, also your automated logistics specialist within the week.
[2019-01-19 16:49] LABS: BASOPHILS # (AUTO) 0.1 10^3/uL (0.0-0.1); BASOPHILS % (AUTO) 1.5 %; EOSINOPHILS # (AUTO) 0.2 10^3/uL (0.0-0.7); EOSINOPHILS % (AUTO) 2.8 %; HGB - HEMOGLOBIN 13.5 g/dL (12.0-16.0); LYMPHOCYTES # (AUTO) 2.8 10^3/uL (1.5-3.5); LYMPHOCYTES % (AUTO) 35.1 %; MEAN CORPUSCULAR HEMOGLOBIN 32.1 pg (27.0-31.0); MEAN CORPUSCULAR HGB CONC 33.6 g/dL (32.0-36.0); MEAN CORPUSCULAR VOLUME 95.5 fL (81.0-99.0); MEAN PLATELET VOLUME 7.8 fL (7.9-10.8); MONOCYTES # (AUTO) 0.8 10^3/uL (0.0-1.0); MONOCYTES % (AUTO) 9.8 %; NEUTROPHILS # (AUTO) 4.1 10^3/uL (1.5-6.6); NEUTROPHILS % (AUTO) 50.8 %; PLT - PLATELET COUNT 280 10^3/uL (130-450); RED CELL DISTRIBUTION WIDTH 13.8 % (12.0-15.0)
--- NOTE | 2019-01-19 17:03 | XRAY Report ---
Reason: foot infection Procedure Date: 01/19/2019 Accession Number: [id number] / [id number] Procedure: XR - Foot 3 View LT CPT Code: FULL RESULT: EXAM: LEFT FOOT RADIOGRAPHY EXAM DATE: 01/19/2019 04:50 PM. CLINICAL HISTORY: Foot infection. COMPARISON: None. TECHNIQUE: 3 views. FINDINGS: Bones: Osteopenia. No definite acute fracture or other bone lesion. Joints: Moderate to marked degenerative changes. Dorsal dislocation of the third digit at the MTP level with hypoplasia of the phalanges suggesting chronicity and developmental abnormality versus remote trauma. Marked extension of second MTP joint also with mild hypoplasia of the phalanges. Soft Tissues: Marked generalized soft tissue swelling. No definite soft tissue gas or foreign body. IMPRESSION: Marked soft tissue swelling. 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 Nevertheless, if the patient's infection appears centered in this region, bone and joint changes related to the infection are a possibility. Further evaluation with MR scan or 3-phase radio nuclear bone scan may be helpful. RADIA
[2019-01-19 17:05] LABS: ALKALINE PHOSPHATASE 78 IU/L (42-121); ALT ALANINE AMINOTRANSFERASE 26 IU/L (10-60); AST ASPARTATE AMINOTRANSFERASE 24 IU/L (10-42); BILIRUBIN,TOTAL 0.4 mg/dL (0.2-1.0); BUN - BLOOD UREA NITROGEN 27 mg/dL (6-20); CALCIUM 8.7 mg/dL (8.5-10.3); CARBON DIOXIDE - CO2 30 mmol/L (21-32); CHLORIDE 97 mmol/L (101-111); CREATININE 0.8 mg/dL (0.4-1.0); GFR - MDRD 71 (>89); GLUCOSE 84 mg/dL (70-100); LIPASE 42 U/L (22-51); SODIUM 138 mmol/L (135-145); TOTAL PROTEIN 7.9 g/dL (6.7-8.2)
[2019-01-19 17:08] LABS: CRP - C-REACTIVE PROTEIN < 1.0 mg/dL (0-1.0)
[2019-01-19] MEDS ORDERED: POTASSIUM CHLORIDE 20 MEQ TABLET PO STA (17:45)
[2019-01-19] MEDS ORDERED: CLINDAMYCIN 150 MG CAPSULE PO STA (17:59)
--- NOTE | 2019-01-19 18:14 | Ultrasound Report ---
Reason: lle PAIN / SWELLING Procedure Date: 01/19/2019 Accession Number: [id number] / [id number] Procedure: US - Duplex Ext Veins Left CPT Code: FULL RESULT: EXAM: LEFT LOWER EXTREMITY VENOUS ULTRASOUND EXAM DATE: 01/19/2019 05:43 PM. CLINICAL HISTORY: Lle PAIN / SWELLING. COMPARISON: None. TECHNIQUE: Real-time sonographic vascular imaging was performed by the management and budget analyst through the lower extremity utilizing both color-flow and Doppler spectral analysis. Multiple area representative static images were saved for review. FINDINGS: Common Femoral Vein (CFV): Normal. CFV-GSV Junction: Normal. Profunda Femoral Vein (PFV): Normal. Femoral Vein (FV) Prox: Normal. Femoral Vein (FV) Mid: Normal. Femoral Vein (FV) Dist: Normal. Popliteal Vein: Normal. Posterior Tibial Veins: Normal. Peroneal Veins: Normal. Contralateral Side CFV: Normal. Other: None. IMPRESSION: No evidence for deep venous thrombosis in the visualized left lower extremity. RADIA
== END 2019-01-19 18:19 | disposition home or self-care (01) ==
LOC: ED 16:23
DX: L03.116 Cellulitis of left lower limb (principal); L97.528 Non-pressure chronic ulcer of other part of left foot with other specified severity; I10 Essential (primary) hypertension
CPT/HCPCS: 36415; 73630; 80053; 83690; 85025; 85651; 86140; 93971; 99283; A9270

== ENCOUNTER 2019-01-25 10:51 | Outpatient (CLI) | payer MEDICARE, MEDICAID ==
--- NOTE | 2019-01-25 13:20 | Ultrasound Report ---
Reason: CELLULITIS FOOT, LEFT EDEMA Procedure Date: 01/25/2019 Accession Number: [id number] / [id number] Procedure: US - Duplex Lwr Ext Arterial Bilat CPT Code: FULL RESULT: EXAM: Bilateral Lower Extremity Arterial Doppler Ultrasound EXAM DATE: 01/25/2019 12:18 PM. CLINICAL HISTORY: Cellulitis foot, left edema. COMPARISON: None. TECHNIQUE: Real-time sonographic vascular imaging was performed by the medical facilities section director, utilizing color-flow, Doppler flow, and spectral analysis. Multiple parts counter representative static images were saved for review. FINDINGS: Bilateral interrogation of the lower extremity artery systems was performed. Limited grayscale images demonstrate superficial soft tissue edema and diffuse atherosclerotic disease. All sampled vessels are patent by color Doppler. Spectral Doppler interrogation of all vessels demonstrates preserved brisk systolic upstroke with preservation of the triphasic waveform to the level of the dorsalis pedis artery on the left and preservation of the triphasic waveform to the level of the dorsalis pedis artery on the right. The following vessels were interrogated and found to be patent with peak systolic velocities in centimeters per second as follows: Right Lower Extremity: UTILITIES ESTIMATOR AND DRAFTER: PSV 150 cm/sec. PSFA: PSV 130 cm/sec. MSFA: PSV 141 cm/sec. DSFA: PSV 95 cm/sec. PFA: PSV 77 cm/sec. POP: PSV 77 cm/sec. EDNA: PSV 78 cm/sec. STRAWBERRY GROWER: PSV 80 cm/sec. JAZIEL: PSV 64 cm/sec. DPA: PSV 82 cm/sec. Left Lower Extremity: UTILITIES ESTIMATOR AND DRAFTER: PSV 152 cm/sec. PSFA: PSV 125 cm/sec. MSFA: PSV 166 cm/sec. DSFA: PSV 108 cm/sec. PFA: PSV 81 cm/sec. POP: PSV 82 cm/sec. EDNA: PSV 80 cm/sec. STRAWBERRY GROWER: PSV 93 cm/sec. JAZIEL: PSV 76 cm/sec. DPA: PSV 91 cm/sec. Note is made of bilateral superficial edema. IMPRESSION: Atherosclerotic disease with preserved 3 vessel flow to the ankle and no evidence of tardus parvus waveforms. Superficial edema is noted bilaterally. RADIA
== END 2019-01-25 10:52 | disposition home or self-care (01) ==
LOC: DI 10:51
PROVIDERS: ATTEND Family Medicine
DX: L03.116 Cellulitis of left lower limb (principal); R60.0 Localized edema; I70.203 Unspecified atherosclerosis of native arteries of extremities, bilateral legs
CPT/HCPCS: 93925

== ENCOUNTER 2019-02-04 07:43 | Outpatient (CLI) | payer MEDICARE, MEDICAID ==
[2019-02-04 14:24] LABS: CALCIUM 9.2 mg/dL (8.5-10.3); CREATININE 0.7 mg/dL (0.4-1.0); URIC ACID 7.5 mg/dL (2.6-7.2)
== END 2019-02-04 07:44 | disposition home or self-care (01) ==
LOC: LAB.WCP 07:43
PROVIDERS: ATTEND Family Medicine
DX: R60.9 Edema, unspecified (principal); M19.90 Unspecified osteoarthritis, unspecified site
CPT/HCPCS: 36415; 80048; 84550

== ENCOUNTER 2019-07-29 07:00 | Outpatient (CLI) | payer MEDICARE, MEDICAID ==
[2019-07-29 12:59] LABS: ALBUMIN 3.9 g/dL (3.2-5.5); BILIRUBIN,TOTAL 0.5 mg/dL (0.2-1.0); CALCIUM 9.2 mg/dL (8.5-10.3); CREATININE 0.8 mg/dL (0.4-1.0); TOTAL PROTEIN 7.8 g/dL (6.7-8.2)
[2019-07-29 13:06] LABS: BASOPHILS # (AUTO) 0.1 10^3/uL (0.0-0.1); BASOPHILS % (AUTO) 0.7 %; EOSINOPHILS # (AUTO) 0.2 10^3/uL (0.0-0.7); EOSINOPHILS % (AUTO) 2.1 %; HGB - HEMOGLOBIN 13.1 g/dL (12.0-16.0); LYMPHOCYTES # (AUTO) 4.3 10^3/uL (1.5-3.5); LYMPHOCYTES % (AUTO) 41.1 %; MEAN CORPUSCULAR HEMOGLOBIN 31.3 pg (27.0-31.0); MEAN CORPUSCULAR HGB CONC 31.8 g/dL (32.0-36.0); MEAN CORPUSCULAR VOLUME 98.6 fL (81.0-99.0); MEAN PLATELET VOLUME 9.8 fL (7.9-10.8); MONOCYTES % (AUTO) 9.2 %; NEUTROPHILS # (AUTO) 4.8 10^3/uL (1.5-6.6); NEUTROPHILS % (AUTO) 46.3 %; PLT - PLATELET COUNT 312 10^3/uL (130-450); RED BLOOD COUNT 4.18 10^6/uL (4.20-5.40); RED CELL DISTRIBUTION WIDTH 14.5 % (12.0-15.0); WHITE BLOOD COUNT 10.4 x10^3/uL (4.8-10.8)
== END 2019-07-29 23:59 | disposition home or self-care (01) ==
LOC: LAB.WCP 07:00
PROVIDERS: ATTEND Family Medicine
DX: G62.9 Polyneuropathy, unspecified (principal); R73.9 Hyperglycemia, unspecified
CPT/HCPCS: 36415; 80053; 84443; 85025

== ENCOUNTER 2019-10-16 08:21 | Outpatient (CLI) | payer MEDICARE, MEDICAID | END 2019-10-16 08:22 | disposition EMS.NT | LOC: LAB 08:21 → EMS 08:22 | PROVIDERS: ATTEND Surgery | DX: R04.0 Epistaxis (principal) ==

== ENCOUNTER 2019-10-16 11:09 | Outpatient (CLI) | payer MEDICARE, MEDICAID | END 2019-10-16 11:10 | disposition critical access hospital (66) | LOC: EMS 11:09 | PROVIDERS: ATTEND Surgery | DX: R04.2 Hemoptysis (principal); R04.0 Epistaxis | CPT/HCPCS: A0425; A0429 ==

== ENCOUNTER 2019-10-16 11:26 | Emergency (ER) | payer MEDICARE, MEDICAID ==
[2019-10-16] MEDS ORDERED: LIDOCAINE-EPINEPH-TETRACAINE 3 ML SYRINGE TOP STA (11:33)
--- NOTE | 2019-10-16 11:35 | ED Physician Documentation ---
PD HPI HEENT - Stated complaint Stated Complaint: SPITTING UP BLOOD - History obtained from History obtained from: Patient, EMS - History of Present Illness Timing - onset: Today Timing - duration: Hours Timing - details: Abrupt onset, Still present, Waxing and waning Location: Nose Improves: Nothing Worsens: Everything Associated symptoms: Congestion, Cough Similar symptoms before: Diagnosis (epistaxis) Recently seen: Not recently seen - Additional information Additional information: 74-year-old female has had some trouble with bleeding from her nose and coughing up blood. When she coughed up a good sized clot today she became concerned is called the ambulance. She is not having any other specific symptoms she is not having shortness of breath or chest pain. Review of Systems Constitutional: denies: Fever, Chills, Myalgias Eyes: denies: Decreased vision Ears: denies: Ear pain Nose: reports: Epistaxis. denies: Rhinorrhea / runny nose Throat: denies: Sore throat Cardiac: denies: Chest pain / pressure Respiratory: denies: Dyspnea, Cough GI: denies: Vomiting PD PAST MEDICAL HISTORY - Past Medical History Cardiovascular: Hypertension, Valve disorder Respiratory: Asthma Neuro: Seizure disorder Endocrine/Autoimmune: HyPERthyroidism GI: Ulcers : Incontinence Psych: Depression, Anxiety, Schizophrenia Musculoskeletal: Osteoarthritis - Past Surgical History Past Surgical History: Yes General: Cholecystectomy HEENT: Cataracts, Tonsil/Adenoidectomy - Present Medications Home Medications: Ambulatory Orders Medication Instructions Recorded Confirmed Primidone 250 mg PO BID 03/23/13 03/01/19 Aripiprazole [Abilify] 30 mg PO DAILY 04/28/14 03/01/19 Isosorbide Dinitrate 30 mg PO DAILY 04/28/14 03/01/19 Propranolol [Inderal] 10 mg PO BID 04/28/14 03/01/19 Hydroxyzine Pamoate 50 mg PO PRN PRN 04/25/16 03/01/19 Bumetanide 2 mg PO TID 12/18/18 03/01/19 Folic Acid 1 mg PO DAILY 12/18/18 03/01/19 Pimecrolimus [Elidel] 30 gm TOP PRN PRN 12/18/18 03/01/19 traZODone [Desyrel] 25 mg PO QPM 12/18/18 03/01/19 Ascorbic Acid [Vitamin C] 1 tab PO DAILY 03/01/19 03/01/19 Calcium Carbonate/Vitamin D3 1 tab PO DAILY 03/01/19 03/01/19 [Calcium 600-Vit D3 800 Caplet] Clorazepate Dipotassium [Tranxene 1 tab PO DAILY 03/01/19 03/01/19 T-Tab] Cyanocobalamin (Vitamin B-12) 1 tab PO DAILY 03/01/19 03/01/19 [Vitamin B-12] Cyclosporine [Restasis] 1 drops EACHEYE BID 03/01/19 03/01/19 Fluconazole 1 tab PO DAILY 03/01/19 03/01/19 Lysine HCl [l-Lysine] 1 tab PO DAILY 03/01/19 03/01/19 Magnesium 1 tab PO DAILY 03/01/19 03/01/19 Mupirocin 1 applic TD DAILY 03/01/19 03/01/19 Nystatin 1 applic TD DAILY 03/01/19 03/01/19 Potassium Chloride [K-Tab ER] 1 tab PO DAILY 03/01/19 03/01/19 Potassium Gluconate 1 tab PO DAILY 03/01/19 03/01/19 Prazosin HCl 1 mg PO DAILY 03/01/19 03/01/19 Propylene Glycol/Peg 400/Pf 1 drops EACHEYE DAILY 03/01/19 03/01/19 [Systane Ultra 0.4-0.3% Eye Drp] Triamcinolone 0.1% Oint [Kenalog 1 applic TD DAILY 03/01/19 03/01/19 0.1% Oint] Turmeric Root Extract [Turmeric 1 cap PO DAILY 03/01/19 03/01/19 Curcumin] - Allergies Allergies/Adverse Reactions: Allergies Allergy/AdvReac Type Severity Reaction Status Date / Time phenobarbital Allergy Intermediate Anxiety Verified 10/16/19 11:37 Penicillins Allergy swelling Verified 10/16/19 11:37 Sulfa (Sulfonamide Allergy Rash Verified 10/16/19 11:37 Antibiotics) Tetracyclines Allergy Anxiety Verified 10/16/19 11:37 - Social History Does the pt smoke?: No Smoking Status: Never smoker Does the pt drink ETOH?: No Does the pt have substance abuse?: No - Immunizations Immunizations are current?: Yes - POLST Patient has POLST: No PD ED PE NORMAL - Vitals Vital signs reviewed: Yes (wide pulse pressure) - General General: Alert and oriented X 3, No acute distress, Well developed/nourished - HEENT HEENT: Atraumatic, PERRL, EOMI, Other (There is blood coming from the left nares anteriorly with a small specific spot. 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, No motor deficit, No sensory deficit, Normal speech Eye Opening: Spontaneous Motor: Obeys Commands Verbal: Oriented GCS Score: 15 - Psych Psych: Normal mood, Normal affect Results - Vitals Vitals: Vital Signs - 24 hr 10/16/19 11:37 Temperature 36.6 C Heart Rate 61 Respiratory 17 Rate Blood Pressure 114/48 L O2 Saturation 99 Oxygen O2 Source Room air Procedures - Epistaxis Site: Left, Anterior Preparation: Other (l.e.t applied) Treatment: Silver Nitrate Other: Observed - no bleeding, Pt tolerated well PD MEDICAL DECISION MAKING - ED course Complexity details: reviewed results, re-evaluated patient, considered differential, d/w patient ED course: 74-year-old female with a nosebleed from the left anterior nares has an obvious source of bleeding which is cauterized with silver nitrate. She tolerates this well. Departure - Departure Disposition: 01 Home, Self Care Clinical Impression: Epistaxis Condition: Stable Instructions: ED Nosebleed Follow-Up: Devon Holden MD [Primary Care Provider] -
[2019-10-16 12:57] VITALS: BP 112/47
== END 2019-10-16 13:12 | disposition home or self-care (01) ==
LOC: EDUNIT# → ED 11:26
DX: R04.0 Epistaxis (principal); I10 Essential (primary) hypertension; I38 Endocarditis, valve unspecified; J45.909 Unspecified asthma, uncomplicated; R32 Unspecified urinary incontinence; F41.9 Anxiety disorder, unspecified; F32.9 Major depressive disorder, single episode, unspecified; F20.9 Schizophrenia, unspecified
CPT/HCPCS: 30901; 99282; 99284

== ENCOUNTER 2019-11-29 08:00 | Outpatient (CLI) | payer MEDICARE, MEDICAID ==
[2019-11-29 12:22] LABS: ALBUMIN 3.8 g/dL (3.2-5.5); BILIRUBIN,TOTAL 0.5 mg/dL (0.2-1.0); CALCIUM 9.2 mg/dL (8.5-10.3); CREATININE 0.8 mg/dL (0.4-1.0); TOTAL PROTEIN 7.8 g/dL (6.7-8.2)
== END 2019-11-29 23:59 | disposition home or self-care (01) ==
LOC: LAB.WCP 08:00
PROVIDERS: ATTEND Family Medicine
DX: I10 Essential (primary) hypertension (principal)
CPT/HCPCS: 36415; 80053

== ENCOUNTER 2020-04-17 12:36 | Emergency (ER) | payer MEDICARE, MEDICAID ==
[2020-04-17] MEDS ORDERED: SODIUM CHLORIDE 0.9% 500 ML IV STA (13:20)
[2020-04-17] MEDS ORDERED: DILTIAZEM 50 MG/10 ML VIAL IVP ONE (13:29)
[2020-04-17 13:38] LABS: BASOPHILS # (AUTO) 0.1 10^3/uL (0.0-0.1); BASOPHILS % (AUTO) 0.6 %; EOSINOPHILS # (AUTO) 0.3 10^3/uL (0.0-0.7); EOSINOPHILS % (AUTO) 3.4 %; HGB - HEMOGLOBIN 13.1 g/dL (12.0-16.0); LYMPHOCYTES % (AUTO) 31.6 %; MEAN CORPUSCULAR HEMOGLOBIN 32.1 pg (27.0-31.0); MEAN CORPUSCULAR HGB CONC 32.7 g/dL (32.0-36.0); MEAN CORPUSCULAR VOLUME 98.3 fL (81.0-99.0); MEAN PLATELET VOLUME 9.2 fL (7.9-10.8); MONOCYTES % (AUTO) 10.6 %; NEUTROPHILS # (AUTO) 5.1 10^3/uL (1.5-6.6); NEUTROPHILS % (AUTO) 53.4 %; PLT - PLATELET COUNT 314 10^3/uL (130-450); RED BLOOD COUNT 4.08 10^6/uL (4.20-5.40); RED CELL DISTRIBUTION WIDTH 14.8 % (12.0-15.0); WHITE BLOOD COUNT 9.5 x10^3/uL (4.8-10.8)
[2020-04-17 13:56] LABS: ALBUMIN 3.6 g/dL (3.2-5.5); BILIRUBIN,TOTAL 0.5 mg/dL (0.2-1.0); CALCIUM 9.7 mg/dL (8.5-10.3); CREATININE 0.8 mg/dL (0.4-1.0); TOTAL PROTEIN 7.2 g/dL (6.7-8.2)
--- NOTE | 2020-04-17 14:36 | ED Physician Documentation ---
History of Present Illness - Stated complaint Stated Complaint: LT LEG [facility] - Chief complaint Chief Complaint: Ext Problem - History obtained from History obtained from: Patient, Family - Additonal information Additional information: Patient comes emergency department complaining of left leg swelling and pain with increased redness. Patient son states the leg appears slightly deeper red than it normally does. Patient denies fevers or chills. She is states that she has had swelling in the leg on and off for some time. No recent injury. Patient states that she has no known history of DVT previously. The patient according to records was seen here a little over a year ago for left lower extremity swelling and had a negative ultrasound at that time. Patient denies any chest pain or shortness of breath. No other complaints at this time. Review of Systems Ten Systems: 10 systems reviewed and negative Constitutional: reports: Reviewed and negative Eyes: reports: Reviewed and negative Ears: reports: Reviewed and negative Nose: reports: Reviewed and negative Throat: reports: Reviewed and negative Cardiac: reports: Reviewed and negative Respiratory: reports: Reviewed and negative GI: reports: Reviewed and negative : reports: Reviewed and negative Skin: reports: Reviewed and negative Musculoskeletal: reports: Extremity swelling Neurologic: reports: Reviewed and negative Psychiatric: reports: Reviewed and negative Endocrine: reports: Reviewed and negative Immunocompromised: reports: Reviewed and negative PD PAST MEDICAL HISTORY - Past Medical History Past Medical History: Yes Cardiovascular: Congestive heart failure, Hypertension, Valve disorder Respiratory: Asthma Neuro: Seizure disorder Endocrine/Autoimmune: HyPERthyroidism GI: Ulcers 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 : Incontinence HEENT: None Psych: Depression, Anxiety, Schizophrenia Musculoskeletal: Osteoarthritis Derm: Eczema - Past Surgical History Past Surgical History: Yes General: Cholecystectomy HEENT: Cataracts, Tonsil/Adenoidectomy - Present Medications Home Medications: Ambulatory Orders Medication Instructions Recorded Confirmed Primidone 250 mg PO BID 03/23/13 04/17/20 Aripiprazole [Abilify] 30 mg PO DAILY PM 04/28/14 04/17/20 Isosorbide Dinitrate 30 mg PO DAILY 04/28/14 04/17/20 Propranolol [Inderal] 10 mg PO BID 04/28/14 04/17/20 Hydroxyzine Pamoate 50 mg PO PRN PRN 04/25/16 03/01/19 Bumetanide 2 mg PO QID 12/18/18 04/17/20 Folic Acid 1 mg PO DAILY 12/18/18 04/17/20 Pimecrolimus [Elidel] 30 gm TOP PRN PRN 12/18/18 04/17/20 traZODone [Desyrel] 25 mg PO QPM 12/18/18 03/01/19 Ascorbic Acid [Vitamin C] 1 tab PO DAILY 03/01/19 04/17/20 Calcium Carbonate/Vitamin D3 1 tab PO DAILY 03/01/19 04/17/20 [Calcium 600-Vit D3 800 Caplet] Clorazepate Dipotassium [Tranxene 1 tab PO DAILY 03/01/19 04/17/20 T-Tab] Cyanocobalamin (Vitamin B-12) 1 tab PO DAILY 03/01/19 04/17/20 [Vitamin B-12] Cyclosporine [Restasis] 1 drops EACHEYE BID 03/01/19 04/17/20 Fluconazole 1 tab PO DAILY 03/01/19 03/01/19 Lysine HCl [l-Lysine] 1 tab PO DAILY 03/01/19 04/17/20 Magnesium 1 tab PO DAILY 03/01/19 04/17/20 Mupirocin 1 applic TD DAILY 03/01/19 04/17/20 Nystatin 1 applic TD DAILY 03/01/19 04/17/20 Potassium Chloride [K-Tab ER] 1 tab PO DAILY 03/01/19 04/17/20 Potassium Gluconate 1 tab PO DAILY 03/01/19 04/17/20 Prazosin HCl 1 mg PO DAILY 03/01/19 03/01/19 Propylene Glycol/Peg 400/Pf 1 drops EACHEYE DAILY 03/01/19 03/01/19 [Systane Ultra 0.4-0.3% Eye Drp] Triamcinolone 0.1% Oint [Kenalog 1 applic TD DAILY 03/01/19 03/01/19 0.1% Oint] Turmeric Root Extract [Turmeric 1 cap PO DAILY 03/01/19 04/17/20 Curcumin] Sulfamethox/Trimeth 800/160 1 each PO BID #14 tablet 04/17/20 [Bactrim Ds 800/160] - Allergies Allergies/Adverse Reactions: Allergies Allergy/AdvReac Type Severity Reaction Status Date / Time phenobarbital Allergy Intermediate Anxiety Verified 04/17/20 12:43 econazole Allergy Unknown Verified 04/17/20 12:43 Penicillins Allergy swelling Verified 04/17/20 12:43 Sulfa (Sulfonamide Allergy Rash Verified 04/17/20 12:43 Antibiotics) Tetracyclines Allergy Anxiety Verified 04/17/20 12:43 - Social History Does the pt smoke?: No Smoking Status: Never smoker Does the pt drink ETOH?: No Does the pt have substance abuse?: No - Immunizations Immunizations are current?: Yes - POLST Patient has POLST: No PD ED PE NORMAL - Vitals Vital signs reviewed: Yes - General General: Alert and oriented X 3, No acute distress, Well developed/nourished - HEENT HEENT: Atraumatic, PERRL, EOMI, Moist mucous membranes - Neck Neck: Supple, no meningeal sign - Cardiac Cardiac: No murmur, Strong equal pulses, Other (Moderately tachycardic, irregular rate and rhythm.) - Respiratory Respiratory: No respiratory distress, Clear bilaterally - Abdomen Abdomen: Soft, Non tender, Non distended - Derm Derm: Warm and dry - Extremities Extremities: No deformity, Other (Marked edema left lower leg with approximately 20 cm diameter area of erythema on the distal lateral aspect. No induration or fluctuance. Similar area on the right side, though much smaller and more faint.) - Neuro Neuro: Alert and oriented X 3 - Psych Psych: Normal mood, Normal affect Results - Vitals Vitals: Vital Signs - 24 hr 04/17/20 04/17/20 04/17/20 12:42 13:00 13:41 Temperature 37.2 C Heart Rate 60 135 H 135 H Respiratory 16 16 18 Rate Blood Pressure 115/74 147/131 H 105/81 H O2 Saturation 96 97 98 04/17/20 04/17/20 04/17/20 13:46 14:36 15:43 Temperature 36.7 C Heart Rate 88 93 103 H Respiratory 16 17 20 Rate Blood Pressure 101/64 107/62 94/66 O2 Saturation 98 99 99 Oxygen O2 Source Room air - EKG (time done) 1324 Rate: Rate (enter#) (124) Rhythm: Atrial fibrillation Standard: Normal Intervals: LBBB QRS: Normal Ischemia: Normal ST segments Compare to prior EKG: Old EKG unavailable Computer interpretation: Agree with computer - Labs Labs: Laboratory Tests 04/17/20 04/17/20 13:35 13:35 WBC 9.5 RBC 4.08 L Hgb 13.1 Hct 40.1 MCV 98.3 MCH 32.1 H MCHC 32.7 RDW 14.8 Plt Count 314 MPV 9.2 Neut # (Auto) 5.1 Lymph # (Auto) 3.0 [place] # (Auto) 1.0 Eos # (Auto) 0.3 Baso # (Auto) 0.1 Absolute Nucleated RBC 0.00 Nucleated RBC % 0.0 Sodium 140 Potassium 4.0 Chloride 97 L Carbon Dioxide 33 H Anion Gap 10.0 BUN 27 H Creatinine 0.8 Estimated GFR (MDRD) 70 L Glucose 122 H Calcium 9.7 Total Bilirubin 0.5 AST 32 ALT 25 Alkaline Phosphatase 56 Total Protein 7.2 Albumin 3.6 Globulin 3.6 Albumin/Globulin Ratio 1.0 Lipase 42 - Rads (name of study) US LLE Radiology: Final report received, EMP read indepedently, See rad report (no dvt) PD MEDICAL DECISION MAKING - ED course Complexity details: reviewed old records, reviewed results, re-evaluated patient, considered differential, d/w patient, d/w family ED course: Patient was noted on the child monitor does have a heart rate irregular in the 140s. EKG demonstrated atrial fibrillation. Patient was given 25 mg of Cardizem IV which did immediately give her good rate control. The patient's labs are unremarkable. Her ultrasound did not show a DVT at this time. Patient was started on Bactrim for cellulitis. She was advised to follow-up with her primary care physician regarding her atrial fib, should she continue to have issues with rate control. We have discussed the usual indications for return. Departure - Departure Disposition: 01 Home, Self Care Clinical Impression: Peripheral edema, Atrial fibrillation with RVR Cellulitis Qualifiers: Site of cellulitis: extremity Site of cellulitis of extremity: lower extremity Laterality: left Qualified Code(s): L03.116 - Cellulitis of left lower limb Condition: Stable Instructions: Atrial Fibrillation Dc, ED Infec Skin Cellulitis Prescriptions: Sulfamethox/Trimeth 800/160 [Bactrim Ds 800/160] 1 each PO BID #14 tablet Comments: Your ultrasound looks good, and does not show any evidence of a blood clot in your leg. Your heart rate was quite fast today, secondary to your atrial fibrillation, and you have been given medicine for that. Please talk to your doctor about whether any of your home medications should have a dose adjustment to prevent this from happening in the future. You have been started on antibiotics for the growing patch of redness on your leg, which could represent an infection. If this does not get better over the next week, please follow-up with your primary care physician. If it gets bigger and you develop fevers, you should return to the emergency department. Discharge Date/Time: 04/17/20 16:03
--- NOTE | 2020-04-17 15:16 | Ultrasound Report ---
PROCEDURE: Duplex Ext Veins Left INDICATIONS: pain/swelling TECHNIQUE: Real-time imaging, as well as color and pulse Doppler interrogation, were performed of the lower extr emity deep veins from the inguinal ligament to the popliteal fossa. COMPARISON: Venous ultrasound comparison not available.. FINDINGS: The deep veins are normally compressible, and free of intraluminal thrombus. Color and pu lse Doppler demonstrate normal phasic intraluminal flow. There is normal augmentation response to di stal compression maneuver. IMPRESSION: Somewhat limited evaluation due to body habitus and swelling over the left lower extremi ty but no DVT is found. Reviewed by: Damion Frias MD on 04/17/2020 3:15 PM PDT Approved by: Damion Frias MD on 04/17/2020 3:15 PM PDT Station ID: [id number]
[2020-04-17] MEDS ORDERED: SULFAMETH/TRIMETH DS 800/160 MG TABLET PO STA (15:21)
[2020-04-17 15:43] VITALS: BP 94/66
== END 2020-04-17 16:03 | disposition home or self-care (01) ==
LOC: ED 12:36
DX: L03.116 Cellulitis of left lower limb (principal); R60.0 Localized edema; I48.91 Unspecified atrial fibrillation; I44.7 Left bundle-branch block, unspecified; I10 Essential (primary) hypertension
CPT/HCPCS: 36415; 80053; 83690; 85025; 93005; 93971; 96361; 96374; 99284; A9270

== ENCOUNTER 2020-04-24 14:08 | Outpatient (CLI) | payer MEDICARE, MEDICAID | END 2020-04-24 14:09 | disposition home or self-care (01) | LOC: EMS 14:08 | PROVIDERS: ATTEND Surgery | DX: Z03.89 Encounter for observation for other suspected diseases and conditions ruled out (principal) ==

== ENCOUNTER 2020-04-30 02:51 | Outpatient (CLI) | payer MEDICARE, MEDICAID | END 2020-04-30 02:52 | disposition EMS.NT | LOC: EMS 02:51 | PROVIDERS: ATTEND Surgery | DX: Z03.89 Encounter for observation for other suspected diseases and conditions ruled out (principal) ==

== ENCOUNTER 2020-05-14 16:02 | Outpatient (CLI) | payer MEDICARE, MEDICAID | END 2020-05-14 16:03 | disposition critical access hospital (66) | LOC: EMS 16:02 | PROVIDERS: ATTEND Surgery | DX: R53.1 Weakness (principal); M79.605 Pain in left leg; M79.604 Pain in right leg | CPT/HCPCS: A0425; A0429 ==

== ENCOUNTER 2020-05-14 16:34 | Emergency (ER) | payer MEDICARE, MEDICAID ==
[2020-05-14] MEDS ORDERED: DILTIAZEM 50 MG/10 ML VIAL IVP STA (16:55)
[2020-05-14 17:19] LABS: BASOPHILS # (AUTO) 0.1 10^3/uL (0.0-0.1); BASOPHILS % (AUTO) 0.4 %; EOSINOPHILS # (AUTO) 0.2 10^3/uL (0.0-0.7); EOSINOPHILS % (AUTO) 1.6 %; LYMPHOCYTES # (AUTO) 2.6 10^3/uL (1.5-3.5); LYMPHOCYTES % (AUTO) 21.3 %; MEAN CORPUSCULAR HEMOGLOBIN 32.8 pg (27.0-31.0); MEAN CORPUSCULAR HGB CONC 33.5 g/dL (32.0-36.0); MEAN PLATELET VOLUME 9.5 fL (7.9-10.8); MONOCYTES # (AUTO) 1.2 10^3/uL (0.0-1.0); NEUTROPHILS % (AUTO) 66.2 %; PLT - PLATELET COUNT 303 10^3/uL (130-450); RED BLOOD COUNT 3.96 10^6/uL (4.20-5.40); WHITE BLOOD COUNT 12.1 x10^3/uL (4.8-10.8)
[2020-05-14 17:34] LABS: ALBUMIN 3.7 g/dL (3.2-5.5); BILIRUBIN,TOTAL 0.8 mg/dL (0.2-1.0); CALCIUM 9.6 mg/dL (8.5-10.3); CREATININE 0.9 mg/dL (0.4-1.0); TOTAL PROTEIN 7.5 g/dL (6.7-8.2)
--- NOTE | 2020-05-14 17:36 | ED Physician Documentation ---
History of Present Illness - Stated complaint Stated Complaint: LEG PAIN - Chief complaint Chief Complaint: General - History obtained from History obtained from: Patient - History of Present Illness Timing: Today Pain level max: 5 Pain level now: 0 - Additonal information Additional information: Patient is a 74-year-old female who states that she had a left leg pain earlier today. She states that this is now resolved. Nothing makes it better or worse. Has chronic edema to the bilateral lower extremities. Denies any focal neurological deficits. No focal weakness or numbness. No chest pain. No shortness of breath. Unclear if she has been taking her medications or not. Patient was seen here about a month ago for similar complaints. Negative ultrasound at that time. Was seen here about a year ago for similar complaints also with a negative ultrasound. She states the swelling is not worse than usual. No increased redness. 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 : Incontinence HEENT: None Psych: Depression, Anxiety, Schizophrenia Musculoskeletal: Osteoarthritis Derm: Eczema - Past Surgical History Past Surgical History: Yes General: Cholecystectomy HEENT: Cataracts, Tonsil/Adenoidectomy - Present Medications Home Medications: Ambulatory Orders Medication Instructions Recorded Confirmed Primidone 250 mg PO BID 03/23/13 04/17/20 Aripiprazole [Abilify] 30 mg PO DAILY PM 04/28/14 04/17/20 Isosorbide Dinitrate 30 mg PO DAILY 04/28/14 04/17/20 Propranolol [Inderal] 10 mg PO BID 04/28/14 04/17/20 Hydroxyzine Pamoate 50 mg PO PRN PRN 04/25/16 03/01/19 Bumetanide 2 mg PO QID 12/18/18 04/17/20 Folic Acid 1 mg PO DAILY 12/18/18 04/17/20 Pimecrolimus [Elidel] 30 gm TOP PRN PRN 12/18/18 04/17/20 traZODone [Desyrel] 25 mg PO QPM 12/18/18 03/01/19 Ascorbic Acid [Vitamin C] 1 tab PO DAILY 03/01/19 04/17/20 Calcium Carbonate/Vitamin D3 1 tab PO DAILY 03/01/19 04/17/20 [Calcium 600-Vit D3 800 Caplet] Clorazepate Dipotassium [Tranxene 1 tab PO DAILY 03/01/19 04/17/20 T-Tab] Cyanocobalamin (Vitamin B-12) 1 tab PO DAILY 03/01/19 04/17/20 [Vitamin B-12] Cyclosporine [Restasis] 1 drops EACHEYE BID 03/01/19 04/17/20 Fluconazole 1 tab PO DAILY 03/01/19 03/01/19 Lysine HCl [l-Lysine] 1 tab PO DAILY 03/01/19 04/17/20 Magnesium 1 tab PO DAILY 03/01/19 04/17/20 Mupirocin 1 applic TD DAILY 03/01/19 04/17/20 Nystatin 1 applic TD DAILY 03/01/19 04/17/20 Potassium Chloride [K-Tab ER] 1 tab PO DAILY 03/01/19 04/17/20 Potassium Gluconate 1 tab PO DAILY 03/01/19 04/17/20 Prazosin HCl 1 mg PO DAILY 03/01/19 03/01/19 Propylene Glycol/Peg 400/Pf 1 drops EACHEYE DAILY 03/01/19 03/01/19 [Systane Ultra 0.4-0.3% Eye Drp] Triamcinolone 0.1% Oint [Kenalog 1 applic TD DAILY 03/01/19 03/01/19 0.1% Oint] Turmeric Root Extract [Turmeric 1 cap PO DAILY 03/01/19 04/17/20 Curcumin] Sulfamethox/Trimeth 800/160 1 each PO BID #14 tablet 04/17/20 [Bactrim Ds 800/160] Cefdinir 300 mg PO BID #20 capsule 05/14/20 - Allergies Allergies/Adverse Reactions: Allergies Allergy/AdvReac Type Severity Reaction Status Date / Time phenobarbital Allergy Intermediate Anxiety Verified 04/17/20 12:43 econazole Allergy Unknown Verified 04/17/20 12:43 Penicillins Allergy swelling Verified 08/24/20 12:43 Sulfa (Sulfonamide Allergy Rash Verified 04/17/20 12:43 Antibiotics) Tetracyclines Allergy Anxiety Verified 04/17/20 12:43 - Social History Does the pt smoke?: No Smoking Status: Never smoker Does the pt drink ETOH?: No Does the pt have substance abuse?: No - Immunizations Immunizations are current?: Yes - POLST Patient has POLST: No PD ED PE NORMAL - Vitals Vital signs reviewed: Yes - General General: Alert and oriented X 3, No acute distress - HEENT HEENT: Moist mucous membranes - Neck Neck: Supple, no meningeal sign - Cardiac Cardiac: RRR - Respiratory Respiratory: No respiratory distress, Clear bilaterally - Abdomen Abdomen: Soft, Non tender, Non distended - Back Back: No CVA TTP, No spinal TTP - Derm Derm: Warm and dry - Extremities Extremities: Other (4+ pitting bilateral lower extremity edema. Minimal erythema, no blistering.) - Neuro Neuro: Alert and oriented X 3 - Psych Psych: Normal mood, Normal affect Results - Vitals Vitals: Vital Signs - 24 hr 05/14/20 05/14/20 05/14/20 16:44 17:28 18:00 Temperature 37 C Heart Rate 129 H 71 94 Respiratory 18 22 23 Rate Blood Pressure 102/82 H 117/56 L 147/81 H O2 Saturation 98 99 100 Oxygen O2 Source Room air - EKG (time done) 1659 Rate: Rate (enter#) (117) Rhythm: Atrial fibrillation Intervals: LBBB - Labs Labs: Laboratory Tests 05/14/20 05/14/20 05/14/20 17:10 17:10 18:10 WBC 12.1 H RBC 3.96 L Hgb 13.0 Hct 38.8 MCV 98.0 MCH 32.8 H MCHC 33.5 RDW 15.0 Plt Count 303 MPV 9.5 Neut # (Auto) 8.0 H Lymph # (Auto) 2.6 [place] # (Auto) 1.2 H Eos # (Auto) 0.2 Baso # (Auto) 0.1 Absolute Nucleated RBC 0.00 Nucleated RBC % 0.0 Sodium 137 Potassium 3.9 Chloride 94 L Carbon Dioxide 24 Anion Gap 19.0 H BUN 32 H Creatinine 0.9 Estimated GFR (MDRD) 61 L Glucose 101 H Calcium 9.6 Total Bilirubin 0.8 AST 70 H ALT 42 Alkaline Phosphatase 68 Total Protein 7.5 Albumin 3.7 Globulin 3.8 Albumin/Globulin Ratio 1.0 Lipase 31 Urine Color YELLOW Urine Clarity CLEAR Urine pH 6.5 Ur Specific [place] 1.010 Urine Protein NEGATIVE Urine Glucose (UA) NEGATIVE Urine Ketones NEGATIVE Urine Occult Blood TRACE-LYSE Urine Nitrite NEGATIVE Urine Bilirubin NEGATIVE Urine Urobilinogen 0.2 (NORMAL) Ur Leukocyte Esterase MODERATE H Urine RBC 0-5 Urine WBC >25 H Urine WBC Clumps PRESENT Ur Squamous Epith Cells NONE SEEN Urine Bacteria Moderate H Ur Microscopic Review INDICATED Urine Culture Comments INDICATED PD MEDICAL DECISION MAKING - ED course Complexity details: reviewed results, re-evaluated patient, considered differential, d/w patient, d/w family ED course: History was repeated once the son arrived. The main concern is that she became weaker today than usual. No focal weakness. Urine was obtained and she does have a UTI. Given IM Rocephin. Will place on oral antibiotics for home. The patient is well-appearing, nontoxic. Afebrile. Discussed with them that they need to start planning for long-term care for the patient. She will become more and more difficult to care for at home. They state that they will discuss this with her doctor. Patient and family counseled regarding signs and symptoms for which I believe and urgent re-evaluation would be necessary. Patient with good understanding of and agreement to plan and is comfortable going home at this time This document was made in part using voice recognition software. While efforts are made to proofread this document, sound alike and grammatical errors may occur. The atrial fibrillation with rapid ventricular response was well controlled with a single dose of diltiazem. Departure - Departure Disposition: Home, Self Care Clinical Impression: Peripheral edema, Atrial fibrillation with RVR UTI (urinary tract infection) Qualifiers: Urinary tract infection type: acute cystitis Hematuria presence: without hematuria Qualified Code(s): N30.00 - Acute cystitis without hematuria Condition: Good Instructions: ED UTI Cystitis Female Follow-Up: your,doctor in 3 days [Other] Prescriptions: Cefdinir 300 mg PO BID #20 capsule Comments: Take all antibiotics until gone. Return if you worsen. Follow-up with your doctor for further care. You need to follow-up with your doctor to discuss increasing your health care benefits for home, perhaps she would qualify for home health services or to have a caregiver?
[2020-05-14 18:28] LABS: BILIRUBIN,URINE NEGATIVE (NEGATIVE); GLUCOSE, URINE (UA) NEGATIVE (NEGATIVE); KETONES,URINE (UA) NEGATIVE (NEGATIVE); LEUKOCYTE ESTERASE, URINE MODERATE (NEGATIVE); NITRITE,URINE NEGATIVE (NEGATIVE); OCCULT BLOOD,URINE TRACE-LYSE (NEGATIVE); PH,URINE 6.5 PH (5.0-7.5); PROTEIN,URINE NEGATIVE (NEGATIVE); UROBILINOGEN,URINE 0.2 (NORMAL) E.U./dL (NORMAL)
[2020-05-14 18:31] LABS: CLARITY,URINE CLEAR (CLEAR)
[2020-05-14] MEDS ORDERED: cefTRIAXone 1 GM VIAL IM STA (18:41)
[2020-05-14] MEDS ORDERED: LIDOCAINE 1% 2 ML VIAL MC ONE (18:41)
[2020-05-14 18:45] LABS: BACTERIA,URINE Moderate /HPF (None Seen); RBC,URINE 0-5 /HPF (0-5); SQUAMOUS EPITHELIAL CELL,UR NONE SEEN (<= Few); WBC CLUMPS,URINE PRESENT
[2020-05-14 19:57] VITALS: BP 134/82
== END 2020-05-14 19:55 | disposition home or self-care (01) ==
LOC: EDUNIT# → ED 16:34
DX: N30.00 Acute cystitis without hematuria (principal); I48.91 Unspecified atrial fibrillation; I44.7 Left bundle-branch block, unspecified; R60.0 Localized edema; I10 Essential (primary) hypertension
CPT/HCPCS: 36415; 51701; 80053; 81001; 81003; 83690; 85025; 87086; 87181; 93005; 99284

== ENCOUNTER 2020-05-14 19:57 | Outpatient (CLI) | payer MEDICARE, MEDICAID | END 2020-05-14 19:58 | disposition home or self-care (01) | LOC: EMS 19:57 | PROVIDERS: ATTEND Surgery | DX: R53.1 Weakness (principal) | CPT/HCPCS: A0425; A0428 ==

== ENCOUNTER 2020-05-17 07:26 | Outpatient (CLI) | payer MEDICARE, MEDICAID | END 2020-05-17 07:27 | disposition critical access hospital (66) | LOC: EMS 07:26 | PROVIDERS: ATTEND Surgery | DX: R53.1 Weakness (principal) | CPT/HCPCS: A0425; A0429 ==

== ENCOUNTER 2020-05-17 07:42 | Inpatient (IN) | payer MEDICARE, MEDICAID ==
--- NOTE | 2020-05-17 07:50 | ED Physician Documentation ---
History of Present Illness - Stated complaint Stated Complaint: WEAKNESS - History obtained from History obtained from: Patient, EMS - Additonal information Additional information: 74-year-old woman with history of psychiatric disorders presents with generalized weakness. She says she has not been able to walk to due to weakness for the last 3 days. She was seen here 3 days ago, diagnosed with a UTI and started on cefdinir. She says she is compliant with that. She also has a history of atrial fibrillation. She denies any urinary complaints. Pedal edema is present but no worse than normal. She does complain of mild cough and sh ortness of breath. No fevers but she has felt cold. Review of Systems Ten Systems: 10 systems reviewed and negative Constitutional: reports: Chills. denies: Fever Cardiac: denies: Chest pain / pressure, Palpitations Respiratory: reports: Dyspnea, Cough GI: denies: Abdominal Pain, Vomiting, Diarrhea PD PAST MEDICAL HISTORY - Past Medical History Cardiovascular: Congestive heart failure, Hypertension, Valve disorder Respiratory: Asthma Neuro: Seizure disorder Endocrine/Autoimmune: HyPERthyroidism GI: Ulcers HEALTH CARE LAW SPECIALIST: None : Incontinence HEENT: None Psych: Depression, Anxiety, Schizophrenia Musculoskeletal: Osteoarthritis Derm: Eczema - Past Surgical History Past Surgical History: Yes General: Cholecystectomy HEENT: Cataracts, Tonsil/Adenoidectomy - Present Medications Home Medications: Ambulatory Orders Medication Instructions Recorded Confirmed Primidone 250 mg PO BID 03/23/13 04/17/20 Aripiprazole [Abilify] 30 mg PO DAILY PM 04/28/14 04/17/20 Isosorbide Dinitrate 30 mg PO DAILY 04/28/14 04/17/20 Propranolol [Inderal] 10 mg PO BID 04/28/14 04/17/20 Hydroxyzine Pamoate 50 mg PO PRN PRN 04/25/16 03/01/19 Bumetanide 2 mg PO QID 12/18/18 04/17/20 Folic Acid 1 mg PO DAILY 12/18/18 04/17/20 Pimecrolimus [Elidel] 30 gm TOP PRN PRN 12/18/18 04/17/20 traZODone [Desyrel] 25 mg PO QPM 12/18/18 03/01/19 Ascorbic Acid [Vitamin C] 1 tab PO DAILY 03/01/19 04/17/20 Calcium Carbonate/Vitamin D3 1 tab PO DAILY 03/01/19 04/17/20 [Calcium 600-Vit D3 800 Caplet] Clorazepate Dipotassium [Tranxene 1 tab PO DAILY 03/01/19 04/17/20 T-Tab] Cyanocobalamin (Vitamin B-12) 1 tab PO DAILY 03/01/19 04/17/20 [Vitamin B-12] Cyclosporine [Restasis] 1 drops EACHEYE BID 03/01/19 04/17/20 Fluconazole 1 tab PO DAILY 03/01/19 03/01/19 Lysine HCl [l-Lysine] 1 tab PO DAILY 03/01/19 04/17/20 Magnesium 1 tab PO DAILY 03/01/19 04/17/20 Mupirocin 1 applic TD DAILY 03/01/19 04/17/20 Nystatin 1 applic TD DAILY 03/01/19 04/17/20 Potassium Chloride [K-Tab ER] 1 tab PO DAILY 03/01/19 04/17/20 Potassium Gluconate 1 tab PO DAILY 03/01/19 04/17/20 Prazosin HCl 1 mg PO DAILY 03/01/19 03/01/19 Propylene Glycol/Peg 400/Pf 1 drops EACHEYE DAILY 03/01/19 03/01/19 [Systane Ultra 0.4-0.3% Eye Drp] Triamcinolone 0.1% Oint [Kenalog 1 applic TD DAILY 03/01/19 03/01/19 0.1% Oint] Turmeric Root Extract [Turmeric 1 cap PO DAILY 03/01/19 04/17/20 Curcumin] Sulfamethox/Trimeth 800/160 1 each PO BID #14 tablet 04/17/20 [Bactrim Ds 800/160] Cefdinir 300 mg PO BID #20 capsule 05/14/20 - Allergies Allergies/Adverse Reactions: Allergies Allergy/AdvReac Type Severity Reaction Status Date / Time phenobarbital Allergy Intermediate Anxiety Verified 05/17/20 07:56 econazole Allergy Unknown Verified 05/17/20 07:56 Penicillins Allergy swelling Verified 05/17/20 07:56 Sulfa (Sulfonamide Allergy Rash Verified 05/17/20 07:56 Antibiotics) Tetracyclines Allergy Anxiety Verified 05/17/20 07:56 - Social History Does the pt smoke?: No Smoking Status: Never smoker Does the pt drink ETOH?: No Does the pt have substance abuse?: No - Immunizations Immunizations are current?: Yes - POLST Patient has POLST: No PD ED PE NORMAL - Vitals Vital signs reviewed: Yes - General General: Alert and oriented X 3, No acute distress - HEENT HEENT: PERRL, EOMI - Neck Neck: Supple, no meningeal sign, No bony TTP - Cardiac Cardiac: Strong equal pulses, Other (Irregularly irregular without murmur) - Respiratory Respiratory: No respiratory distress, Clear bilaterally - Abdomen Abdomen: Soft, Non tender - Back Back: No CVA TTP, No spinal TTP - Extremities Extremities: Other (Symmetric significant bilateral pedal edema with venous stasis changes and chronic cellulitis left worse than right) - Neuro Neuro: Alert and oriented X 3, Normal speech, Other (She makes some effort against gravity in both legs but unable to lift either leg off the bed. She has no pronator drift to either arm.) Eye Opening: Spontaneous Motor: Obeys Commands Verbal: Oriented GCS Score: 15 Results - Vitals Vitals: Vital Signs - 24 hr 05/17/20 05/17/20 05/17/20 07:52 08:30 09:05 Temperature 36.3 C L Heart Rate 69 70 68 Respiratory 18 18 18 Rate Blood Pressure 117/56 L 105/57 L 120/50 L O2 Saturation 99 97 05/17/20 09:30 Temperature Heart Rate 74 Respiratory 18 Rate Blood Pressure 112/53 L O2 Saturation 100 Oxygen O2 Source Room air - EKG (time done) 0842 Rate: Rate (enter#) (69) Rhythm: NSR Intervals: LBBB Compare to prior EKG: Changed from prior EKG (last EKG was flutter, but otherwise no chg) Computer interpretation: Agree with computer - Labs Labs: Laboratory Tests 05/17/20 05/17/20 05/17/20 08:03 08:03 08:03 WBC 9.8 RBC 3.52 L Hgb 11.4 L Hct 35.7 L MCV 101.4 H MCH 32.4 H MCHC 31.9 L RDW 15.4 H Plt Count 297 MPV 9.8 Neut # (Auto) 6.0 Lymph # (Auto) 2.4 Inyo # (Auto) 0.9 Eos # (Auto) 0.4 Baso # (Auto) 0.1 Absolute Nucleated RBC 0.00 Nucleated RBC % 0.0 Sodium 136 Potassium 3.8 Chloride 92 L Carbon Dioxide 29 Anion Gap 15.0 H BUN 27 H Creatinine 0.9 Estimated GFR (MDRD) 61 L Glucose 146 H Lactic Acid 3.5 H* Calcium 9.1 Magnesium 2.3 Total Bilirubin 0.4 AST 50 H ALT 37 Alkaline Phosphatase 59 Total Creatine Kinase 360 H Troponin I High Sens B-Natriuretic Peptide Total Protein 6.8 Albumin 3.4 Globulin 3.4 Albumin/Globulin Ratio 1.0 Lipase 26 TSH Urine Color Urine Clarity Urine pH Ur Specific Lynn Urine Protein Urine Glucose (UA) Urine Ketones Urine Occult Blood Urine Nitrite Urine Bilirubin Urine Urobilinogen Ur Leukocyte Esterase Urine RBC Urine WBC Ur Squamous Epith Cells Urine Bacteria Ur Microscopic Review Urine Culture Comments Salicylates < 6.0 Urine Opiates Screen Ur Oxycodone Screen Urine Methadone Screen Ur Propoxyphene Screen Acetaminophen < 10 L Ur Barbiturates Screen Ur Tricyclics Screen Ur Phencyclidine Scrn Ur Amphetamine Screen U Methamphetamines Scrn U Benzodiazepines Scrn Urine Cocaine Screen U Cannabinoids Screen 05/17/20 05/17/20 05/17/20 08:03 08:33 08:33 WBC RBC Hgb Hct MCV MCH MCHC RDW Plt Count MPV Neut # (Auto) Lymph # (Auto) [place] # (Auto) Eos # (Auto) Baso # (Auto) Absolute Nucleated RBC Nucleated RBC % Sodium Potassium Chloride Carbon Dioxide Anion Gap BUN Creatinine Estimated GFR (MDRD) Glucose Lactic Acid Calcium Magnesium Total Bilirubin AST ALT Alkaline Phosphatase Total Creatine Kinase Troponin I High Sens 27.3 H* B-Natriuretic Peptide 112 H Total Protein Albumin Globulin Albumin/Globulin Ratio Lipase TSH 1.53 Urine Color Urine Clarity Urine pH Ur Specific Lynn Urine Protein Urine Glucose (UA) Urine Ketones Urine Occult Blood Urine Nitrite Urine Bilirubin Urine Urobilinogen Ur Leukocyte Esterase Urine RBC Urine WBC Ur Squamous Epith Cells Urine Bacteria Ur Microscopic Review Urine Culture Comments Salicylates Urine Opiates Screen Ur Oxycodone Screen Urine Methadone Screen Ur Propoxyphene Screen Acetaminophen Ur Barbiturates Screen Ur Tricyclics Screen Ur Phencyclidine Scrn Ur Amphetamine Screen U Methamphetamines Scrn U Benzodiazepines Scrn Urine Cocaine Screen U Cannabinoids Screen 05/17/20 09:40 WBC RBC Hgb Hct MCV MCH MCHC RDW Plt Count MPV Neut # (Auto) Lymph # (Auto) [place] # (Auto) Eos # (Auto) Baso # (Auto) Absolute Nucleated RBC Nucleated RBC % Sodium Potassium Chloride Carbon Dioxide Anion Gap BUN Creatinine Estimated GFR (MDRD) Glucose Lactic Acid Calcium Magnesium Total Bilirubin AST ALT Alkaline Phosphatase Total Creatine Kinase Troponin I High Sens B-Natriuretic Peptide Total Protein Albumin Globulin Albumin/Globulin Ratio Lipase TSH Urine Color YELLOW Urine Clarity CLEAR Urine pH 7.5 Ur Specific Lynn 1.010 Urine Protein NEGATIVE Urine Glucose (UA) NEGATIVE Urine Ketones NEGATIVE Urine Occult Blood NEGATIVE Urine Nitrite NEGATIVE Urine Bilirubin NEGATIVE Urine Urobilinogen 0.2 (NORMAL) Ur Leukocyte Esterase TRACE H Urine RBC None Seen Urine WBC 6-10 H Ur Squamous Epith Cells FEW Squamous Urine Bacteria Rare Ur Microscopic Review INDICATED Urine Culture Comments INDICATED Salicylates Urine Opiates Screen NEGATIVE Ur Oxycodone Screen NEGATIVE Urine Methadone Screen NEGATIVE Ur Propoxyphene Screen NEGATIVE Acetaminophen Ur Barbiturates Screen POSITIVE H Ur Tricyclics Screen NEGATIVE Ur Phencyclidine Scrn NEGATIVE Ur Amphetamine Screen NEGATIVE U Methamphetamines Scrn NEGATIVE U Benzodiazepines Scrn NEGATIVE Urine Cocaine Screen NEGATIVE U Cannabinoids Screen NEGATIVE - Rads (name of study) 1v chest Radiology: EMP read contemporaneously (Mild pulmonary vascular congestion and trace left pleural effusion) PD MEDICAL DECISION MAKING - ED course Complexity details: reviewed old records (On initial evaluation the urine culture from the other day with had not been finalized, but later in her stay it was finalized, pansensitive E. coli.) ED course: 74-year-old woman presents with generalized weakness to the extent that she cannot even lift her legs off the bed in the setting of recent UTI with pansensitive E. coli having apparently failed treatment with persistently positive catheter UA here despite being on oral cephalosporin. Lactic acidosis, but no other hard signs of sepsis, and therefore does not fit septic criteria. Spoke with Dr. Monroy for admission at 10:23 AM. Departure - Departure Disposition: 66 [facility] DC/Xfer Clinical Impression: Weak UTI (urinary tract infection) Qualifiers: Urinary tract infection type: site unspecified Hematuria presence: without hematuria Qualified Code(s): N39.0 - Urinary tract infection, site not specified Condition: Serious
[2020-05-17 08:14] LABS: BASOPHILS # (AUTO) 0.1 10^3/uL (0.0-0.1); BASOPHILS % (AUTO) 0.6 %; EOSINOPHILS # (AUTO) 0.4 10^3/uL (0.0-0.7); EOSINOPHILS % (AUTO) 3.7 %; HGB - HEMOGLOBIN 11.4 g/dL (12.0-16.0); LYMPHOCYTES # (AUTO) 2.4 10^3/uL (1.5-3.5); LYMPHOCYTES % (AUTO) 24.9 %; MEAN CORPUSCULAR HEMOGLOBIN 32.4 pg (27.0-31.0); MEAN CORPUSCULAR HGB CONC 31.9 g/dL (32.0-36.0); MEAN CORPUSCULAR VOLUME 101.4 fL (81.0-99.0); MEAN PLATELET VOLUME 9.8 fL (7.9-10.8); MONOCYTES # (AUTO) 0.9 10^3/uL (0.0-1.0); MONOCYTES % (AUTO) 9.6 %; NEUTROPHILS % (AUTO) 60.7 %; PLT - PLATELET COUNT 297 10^3/uL (130-450); RED BLOOD COUNT 3.52 10^6/uL (4.20-5.40); RED CELL DISTRIBUTION WIDTH 15.4 % (12.0-15.0); WHITE BLOOD COUNT 9.8 x10^3/uL (4.8-10.8)
[2020-05-17 08:29] LABS: ACETAMINOPHEN < 10 ug/mL (10-30); ALBUMIN 3.4 g/dL (3.2-5.5); ALKALINE PHOSPHATASE 59 IU/L (42-121); ALT ALANINE AMINOTRANSFERASE 37 IU/L (10-60); AST ASPARTATE AMINOTRANSFERASE 50 IU/L (10-42); BILIRUBIN,TOTAL 0.4 mg/dL (0.2-1.0); BUN - BLOOD UREA NITROGEN 27 mg/dL (6-20); CALCIUM 9.1 mg/dL (8.5-10.3); CARBON DIOXIDE - CO2 29 mmol/L (21-32); CHLORIDE 92 mmol/L (101-111); CK- CREATINE KINASE 360 IU/L (22-269); CREATININE 0.9 mg/dL (0.4-1.0); GLUCOSE 146 mg/dL (70-100); LIPASE 26 U/L (22-51); MAGNESIUM 2.3 mg/dL (1.7-2.8); SALICYLATE < 6.0 mg/dL; SODIUM 136 mmol/L (135-145); TOTAL PROTEIN 6.8 g/dL (6.7-8.2)
--- NOTE | 2020-05-17 08:31 | XRAY Report ---
PROCEDURE: Chest 1 View X-Ray INDICATIONS: cough TECHNIQUE: One view of the chest was acquired. COMPARISON: 10/15/2017 FINDINGS: Surgical changes and devices: None. Lungs and pleura: Pulmonary vascular congestion is seen. Blunting of left costophrenic angle is also noted with suggestion of trace left pleural effusion. Mild pulmonary edema is also likely present. No focal infiltrate. No pneumothorax. Mediastinum: Mediastinal contours appear normal. Heart size is mildly enlarged. Bones and chest wall: No suspicious bony lesions. Overlying soft tissues appear unremarkable. IMPRESSION: Mild pulmonary vascular congestion and trace left pleural effusion. No definite focal infiltrate or g ross pneumothorax. Reviewed by: Patrick Zarate MD on 05/17/2020 8:29 AM PDT Approved by: Patrick Zarate MD on 05/17/2020 8:29 AM PDT Station ID: [id number]
[2020-05-17 10:03] LABS: MUDS CUTOFF CONCENTRATIONS CUTOFF CONC BELOW:
[2020-05-17 10:06] LABS: BILIRUBIN,URINE NEGATIVE (NEGATIVE); GLUCOSE, URINE (UA) NEGATIVE (NEGATIVE); KETONES,URINE (UA) NEGATIVE (NEGATIVE); LEUKOCYTE ESTERASE, URINE TRACE (NEGATIVE); NITRITE,URINE NEGATIVE (NEGATIVE); OCCULT BLOOD,URINE NEGATIVE (NEGATIVE); PH,URINE 7.5 PH (5.0-7.5); PROTEIN,URINE NEGATIVE (NEGATIVE); UROBILINOGEN,URINE 0.2 (NORMAL) E.U./dL (NORMAL)
[2020-05-17 10:10] LABS: CLARITY,URINE CLEAR (CLEAR)
[2020-05-17] MEDS ORDERED: levoFLOXacin 500 MG/100 ML 500 MG/100 ML BAG IV STA (10:15)
[2020-05-17 10:16] LABS: AMPHETAMINE SCREEN,URINE NEGATIVE (NEGATIVE); BACTERIA,URINE Rare /HPF (None Seen); BENZODIAZEPINES SCREEN, URINE NEGATIVE (NEGATIVE); COCAINE SCREEN URINE NEGATIVE (NEGATIVE); METHADONE SCREEN, URINE NEGATIVE (NEGATIVE); METHAMPHETAMINES SCREEN, URINE NEGATIVE (NEGATIVE); OPIATE SCREEN, URINE NEGATIVE (NEGATIVE); OXYCODONE SCREEN, URINE NEGATIVE (NEGATIVE); PROPOXYPHENE SCREEN, URINE NEGATIVE (NEGATIVE); RBC,URINE None Seen /HPF (0-5); SQUAMOUS EPITHELIAL CELL,UR FEW Squamous (<= Few); TRICYCLIC ANTIDEPRESSANT,URINE NEGATIVE (NEGATIVE)
[2020-05-17] MEDS ORDERED: ONDANSETRON 4 MG/2 ML VIAL IVP PRN (10:47)
[2020-05-17] MEDS ORDERED: oxyCODONE 5 MG TABLET PO PRN (10:47)
[2020-05-17] MEDS ORDERED: SODIUM CHLORIDE FLUSH 0.9% 10 ML SYRINGE IVP PRN (10:47)
[2020-05-17] MEDS ORDERED: hydrOXYzine PAMOATE 25 MG CAPSULE PO PRN (10:53)
--- NOTE | 2020-05-17 10:56 | HISTORY & PHYSICAL EXAMINATION ---
Chief Complaint - Chief Complaint Chief Complaint: profound weakness History of Present Illness - Admitted From Admitted From:: ER - History Obtained From Records Reviewed: [facility] History obtained from: pt Exam Limitations: confused - History of Present Illness HPI Comment/Other: This is a 74-year-old woman with history of psychiatric Schizophrenia disorders, Depression, anxiety, obesity, Osteoarthritis, atrial fibrillation, Seizure disorder, asthma, urinary incontinence, congestive heart failure, hypertension, valve disease, hyperthyroidism, gastric ulcer, chronic bilateral lower extremity lymphedema who present presents with profound weakness. She was seen here 3 days ago, diagnosed with a UTI and pt was started on cefdinir. She report she has been compliant with that medication. She report she has not been able to walk to due to very weakness for the last 3 days. She report she still has urinary incontinency "something is moving, I can feel". she report she had Pedal edema is not increased as her usual. She complain of mild cough and report she had some shortness of breath on and off, but she denies shortness of breath today, chest pain, fever, chill. Routine laboratory tests do show patient had elevated lactic acid at 3.5. High-sensitivity troponin test showed 27. Urinalysis review elevated esterase and WBC 710. chest x-ray show mild pulmonary vascular congestion and trace left pleural effusion, no definition focal infiltration or pneumothorax. Patient is admitted for further medical management. Discussed the care goal with the patient, patient request full code. History - Past Medical History Cardiovascular: reports: Congestive heart failure, Hypertension, Valve disorder Respiratory: reports: Asthma Neuro: reports: Seizure disorder Endocrine/Autoimmune: reports: HyPERthyroidism GI: reports: Ulcers STOCK PITCHER: reports: None : reports: Incontinence HEENT: reports: None Psych: reports: Depression, Anxiety, Schizophrenia Musculoskeletal: reports: Osteoarthritis Derm: reports: Eczema MRSA Hx?: No - Past Surgical History General: reports: Cholecystectomy HEENT: reports: Cataracts, Tonsil/Adenoidectomy - Family & Social History Family History: Mother: , Father: Family History Comment/Other: Patient reported her father naturally at age 7070 years old, Her mother at age 90 natural . She had a younger sister who had a multiple medical issue. Social History Notes: Patient reported she is living with her son in [facility]. She denies history of cigarette smoking, alcohol or drug issue. - POLST Patient has POLST: No Meds/Allgy - Home Medications Home Medications: Ambulatory Orders Medication Instructions Recorded Confirmed Primidone 250 mg PO BID 03/23/13 05/17/20 Aripiprazole [Abilify] 30 mg PO DAILY PM 04/28/14 05/17/20 Propranolol [Inderal] 10 mg PO BID 04/28/14 05/17/20 Bumetanide 10 mg PO DAILY 12/18/18 05/17/20 Folic Acid 1 mg PO DAILY 12/18/18 05/17/20 Calcium Carbonate/Vitamin D3 1 tab PO DAILY 03/01/19 05/17/20 [Calcium 600-Vit D3 800 Caplet] Cyanocobalamin (Vitamin B-12) 1 tab PO DAILY 03/01/19 05/17/20 [Vitamin B-12] Magnesium 1 tab PO DAILY 03/01/19 05/17/20 Mupirocin 1 applic TD DAILY 03/01/19 05/17/20 Nystatin 1 applic TD DAILY 03/01/19 05/17/20 Cefdinir 300 mg PO BID #20 capsule 05/14/20 05/17/20 Isosorbide Mononitrate ER [Imdur] 30 mg PO DAILY 05/17/20 05/17/20 Potassium Chloride [Klor-Con 10] 10 meq PO DAILY 05/17/20 05/17/20 - Allergies Allergies/Adverse Reactions: Allergies Allergy/AdvReac Type Severity Reaction Status Date / Time phenobarbital Allergy Intermediate Anxiety Verified 05/17/20 07:56 econazole Allergy Unknown Verified 05/17/20 07:56 Penicillins Allergy swelling Verified 05/17/20 07:56 Sulfa (Sulfonamide Allergy Rash Verified 05/17/20 07:56 Antibiotics) Tetracyclines Allergy Anxiety Verified 05/17/20 07:56 Review of Systems - Constitutional Constitutional: reports: Chills, Weakness. denies: Fatigue, Malaise, Poor appetite, Diaphoresis, Night sweats - Eyes Eyes: denies: Pain, Blurred vision, Spots in vision, Field loss, Vision loss, Dipolpia - Ears, Nose & Throat Ears, Nose & Throat: denies: Hearing aids, Vertigo, Nasal discharge, Nosebleeds, Nasal congestion, Sore throat, Mouth lesions, Bleeding gums - Cardiovascular Cariovascular: reports: Edema. denies: Irregular heart rate, Palpitations, Chest pain, Lightheadedness, Syncope, Exertional dyspnea, Decr. exercise tolerance - Respiratory Respiratory: denies: Cough, Sputum production, Wheezing, Snoring, Hemoptysis, Orthopnea, SOB at rest, SOB with exertion - Gastrointestinal Gastrointestinal: denies: Abdominal pain, Abdominal distention, Constipation, Diarrhea, Rectal bleeding, Black stools, Bloody stools, Nausea, Vomiting, Derek blood emesis, Coffee grounds emesis, Reflux/heartburn - Genitourinary Genitourinary: reports: Incontinence. denies: Dysuria, Urgency, Hematuria, Flank pain - Musculoskeletal Musculoskeletal: denies: Muscle pain, Muscle aches, Stiffness, Limited range of motion, Muscle weakness, Joint pain, Joint swelling - Integumentary Integumentary: denies: Rash, Lesions, Dryness, Acne, Pigment changes - Neurological Neurological: reports: General weakness. denies: Focal weakness, Headache, Dizziness, Numbness, Memory problems, Pre-existing deficit, Abnormal gait, Seizures, Incoordination, Slurred speech - Psychiatric Psychiatric: denies: Suicidal, Delusions, Hallucinations, Homicidal - Endocrine Endocrine: denies: Polyuria, Polydypsia, Polyphagia, Intolerance to cold - Hematologic/Lymphatic Hematologic/Lymphatic: denies: Anemia, Bruising, Blood clots, Recurrent infections Exam - Vital Signs Vital Signs: Vital Signs x48h Temp Pulse Resp BP Pulse Ox 05/17/20 09:30 74 18 112/53 L 100 05/17/20 09:05 68 18 120/50 L 05/17/20 08:30 70 18 105/57 L 97 05/17/20 07:52 36.3 C L 69 18 117/56 L 99 - Physical Exam General Appearance: positive: No acute distress, Alert. negative: Lethargic Eyes Bilateral: positive: Normal inspection, PERRL, No lid inflammation ENT: positive: ENT inspection nml, Pharynx nml, No signs of dehydration. negative: Purulent nasal drainage Neck: positive: Nml inspection, Thyroid nml, Trachea midline, Thyromegaly. negative: Stiff neck, Tracheal deviation Respiratory: positive: Chest non-tender, No respiratory distress, Breath sounds nml. negative: Wheezes, Rales, Rhonchi Cardiovascular: positive: No murmur, Irregularly irregular, Tachycardia. negative: Bradycardia, Systolic murmur, Diastolic murmur Peripheral Pulses: positive: 2+ Abdomen: positive: Non-tender, Nml bowel sounds, No distention. negative: Tenderness, Guarding, Rebound Back: positive: Nml inspection. negative: CVA tenderness (R), CVA tenderness (L) Skin: positive: Color nml, Warm, Dry. negative: Cyanosis, Diaphoresis, Pallor Extremities: positive: Non-tender, Nml appearance, Pedal edema. negative: Calf tenderness Neurologic/Psychiatric: positive: Sensation nml. negative: Weakness, Sensory loss, Facial droop, Slurred/abnml speech Conclusion/Plan - Problem List (1) UTI (urinary tract infection) Qualifiers: Urinary tract infection type: site unspecified Hematuria presence: without hematuria Qualified Code(s): N39.0 - Urinary tract infection, site not specified (4) Schizophrenia Conclusion/Plan: Stable, we will resume home medication Abilify (5) Hyperthyroidism Conclusion/Plan: We will check TSH, will resume home medication propranolol. (6) Seizure Conclusion/Plan: Stable, no seizure now, resume home medication primidone, Seizure precaution (7) Systolic heart failure Conclusion/Plan: Echo review patient had 40 to 45% of EF. We will continue home Beta-helio, We will try low dosage of lisinopril if patient tolerated for blood pressure. Continue telemetry and vital signs monitor (8) HTN (hypertension) Conclusion/Plan: Patient had soft blood pressure now, We will hold some of his home blood pressure medicine, Continue vital signs monitor (9) Elevated troponin Conclusion/Plan: Patient Denies any chest pain, shortness of breathing right now. pt had slightly elevated troponin 27 at high-sensitivity troponin study, unchanged EKG. will continue do troponin study , Continue telemetry and vital signs monitor - Lab Results Fish Bones: 05/17/20 08:03 05/17/20 08:03 Core Measures - Anticipated LOS I expect patient to be DC'd or transferred within 96 hours.: Yes - Stroke - Rehab Assessment Rehab services assessment to be ordered?: Yes - AMI - Statin at Admit Aspirin Prescribed on Admit: Yes
[2020-05-17] MEDS ORDERED: PROPRANOLOL 10 MG TABLET PO SCH (14:13)
--- NOTE | 2020-05-17 16:33 | PHARMACY PROGRESS NOTE ---
- Best Possible Medication History Admit Date and Time: 05/17/20 1047 Processed by: Pharmacy Medication History completed: Yes Patient Interview: Pt unable to participate Secondary Source(s): Other family member (Patient's son was a confused historian - relied mostly on pharmacy records), Pharmacy records As the person ultimately responsible for medication therapy, providers are able to order a medication from an existing home medication list in [facility] via the "Reconcile Routine" prior to Confirmation of that medication by integrated logistics support manager. Such practice is discouraged except when the physician, in their clinical judgment, deems that a medical need exists for a medication without regard to previous use.
[2020-05-17] MEDS: SODIUM CHLORIDE FLUSH 0.9% 10 ML SYRINGE IVP SCH (17:24)
[2020-05-17] MEDS: ARIPiprazole 5 MG TABLET PO SCH (21:04)
[2020-05-17] MEDS: PRIMIDONE 50 MG TABLET PO SCH (21:05)
[2020-05-17] MEDS: PROPRANOLOL 10 MG TABLET PO SCH (21:08)
[2020-05-18] MEDS: SODIUM CHLORIDE FLUSH 0.9% 10 ML SYRINGE IVP SCH ×3 (01:12→18:14)
[2020-05-18] MEDS ORDERED: MIN OIL/DIMETHICON/COCONUT OIL 92 GM TUBE TOP PRN (02:33)
[2020-05-18 05:02] LABS: BASOPHILS % (AUTO) 0.4 %; EOSINOPHILS # (AUTO) 0.4 10^3/uL (0.0-0.7); HGB - HEMOGLOBIN 10.9 g/dL (12.0-16.0); LYMPHOCYTES # (AUTO) 3.5 10^3/uL (1.5-3.5); LYMPHOCYTES % (AUTO) 39.1 %; MEAN CORPUSCULAR HEMOGLOBIN 31.6 pg (27.0-31.0); MEAN CORPUSCULAR HGB CONC 31.6 g/dL (32.0-36.0); MEAN PLATELET VOLUME 9.8 fL (7.9-10.8); MONOCYTES # (AUTO) 0.9 10^3/uL (0.0-1.0); MONOCYTES % (AUTO) 9.6 %; NEUTROPHILS # (AUTO) 4.1 10^3/uL (1.5-6.6); NEUTROPHILS % (AUTO) 46.6 %; PLT - PLATELET COUNT 277 10^3/uL (130-450); RED BLOOD COUNT 3.45 10^6/uL (4.20-5.40); RED CELL DISTRIBUTION WIDTH 15.5 % (12.0-15.0); WHITE BLOOD COUNT 8.9 x10^3/uL (4.8-10.8)
[2020-05-18 05:09] LABS: CALCIUM 8.7 mg/dL (8.5-10.3); CREATININE 0.5 mg/dL (0.4-1.0); MAGNESIUM 2.4 mg/dL (1.7-2.8)
[2020-05-18] MEDS: PANTOPRAZOLE 40 MG TABLET PO SCH (06:47)
[2020-05-18] MEDS ORDERED: cefTRIAXone 2 GM in SODIUM CHLORIDE 0.9% MINIBAG 100 ML IV SCH (09:00)
[2020-05-18] MEDS ORDERED: ISOSORBIDE MONONITRATE ER 30 MG TABLET PO SCH ×2 (09:00)
[2020-05-18] MEDS ORDERED: NON FORMULARY MED (Nystatin [Nystatin] 1 APPLIC) TD SCH (09:00)
[2020-05-18] MEDS ORDERED: BUMETANIDE PO SCH (09:00)
[2020-05-18] MEDS ORDERED: ARIPiprazole 5 MG TABLET PO SCH (09:00)
[2020-05-18] MEDS: ENOXAPARIN 40 MG/0.4 ML SYRINGE SUBQ SCH ×2 (09:10→21:38)
[2020-05-18] MEDS: PRIMIDONE 50 MG TABLET PO SCH ×2 (09:11→21:37)
[2020-05-18] MEDS: LACTOBACILLUS RHAMNOSUS GG CAPSULE PO SCH (09:12)
[2020-05-18] MEDS: levoFLOXacin 500 MG/100 ML 500 MG/100 ML BAG IV SCH (09:12)
[2020-05-18] MEDS ORDERED: BUMETANIDE 1 MG TABLET PO SCH (10:00)
[2020-05-18] MEDS: NYSTATIN POWDER 15 GM TOP SCH (11:11)
[2020-05-18] MEDS: MUPIROCIN 2% OINT 22 GM TUBE TOP SCH (11:11)
[2020-05-18] MEDS: PROPRANOLOL 10 MG TABLET PO SCH ×2 (11:13→21:36)
[2020-05-18] MEDS: lisinopriL 5 MG TABLET PO SCH (11:13)
--- NOTE | 2020-05-18 13:44 | PROVIDER PROGRESS NOTE ---
Assessment/Plan - Problem List (1) UTI (urinary tract infection) Qualifiers: Urinary tract infection type: site unspecified Hematuria presence: without hematuria Qualified Code(s): N39.0 - Urinary tract infection, site not specified Assessment/Plan: We will continue antibiotics, urine culture and sensitivity study is pending, we will follow-up. (2)Generalized weakness We will continue to have physical therapist occupational therapist for patient. (3) Schizophrenia Stable, we will resume home medication Abilify (4) Hyperthyroidism 05/18 TSH normal (5) Seizure Stable, no seizure now, resume home medication primidone, Seizure precaution (6) Systolic heart failure Conclusion/Plan: 924,We will resume home diuretics Bumex, we will continue check BNP, continue beta-helio and low-dose of lisinopril Echo review patient had 40 to 45% of EF. We will continue home Beta-helio, We will try low dosage of lisinopril if patient tolerated for blood pressure. Continue telemetry and vital signs monitor (7) HTN (hypertension) Conclusion/Plan: Patient had soft blood pressure now, We will hold some of his home blood pressure medicine, Continue vital signs monitor (8) Elevated troponin Conclusion/Plan: Patient's troponin is flat, patient denies any chest pain.We will continue telemetry and vital signs monitor. Patient Denies any chest pain, shortness of breathing right now. pt had slightly elevated troponin 27 at high-sensitivity troponin study, unchanged EKG. will continue do troponin study , Continue telemetry and vital signs monitor - Current Meds Current Meds: Current Medications Generic Name Dose Route Start Last Admin Trade Name Ann PRN Reason Stop Dose Admin Aripiprazole 30 mg 05/17/20 21:00 05/17/20 21:04 Abilify PO [address] Administration Bumetanide 2 mg 05/18/20 10:00 05/18/20 11:47 Bumex PO [address] Administration Enoxaparin Sodium 40 mg 05/18/20 09:00 05/18/20 09:10 Lovenox SUBQ 40 mg 0900,2100 LANE Administration Levofloxacin 500 mg in 100 mls @ 100 mls/hr 05/18/20 09:00 05/18/20 11:39 Levaquin 500 Mg/100 Ml IV Infused Q24H LANE Infusion Lactobacillus Rhamnosus 1 cap 05/18/20 09:00 05/18/20 09:12 Culturelle PO [address] Administration Lisinopril 2.5 mg 05/18/20 09:00 05/18/20 11:13 Zestril PO Not Given DAILY LANE Mupirocin 1 applic 05/18/20 09:00 05/18/20 11:11 Bactroban 2% Oint TOP [address] Administration Nystatin 1 applic 05/18/20 11:00 05/18/20 11:11 Nystop TOP [address] Administration Pantoprazole Sodium 40 mg 05/18/20 07:00 05/18/20 06:47 Protonix PO [address] Administration Primidone 250 mg 05/17/20 21:00 05/18/20 09:11 Mysoline PO [address] Administration Propranolol HCl 10 mg 05/17/20 14:15 05/18/20 11:13 Inderal PO Not Given BID LANE Sodium Chloride 10 ml 05/17/20 17:00 05/18/20 11:13 Normal Saline Flush 0.9% IVP 10 ml 0100,0900,1700 LANE Administration - Lab Result Fish Bone Diagrams: 05/18/20 04:25 05/18/20 04:25 - Additional Planning My Orders: My Active Orders 05/17/20 14:15 Propranolol [Inderal] 10 mg PO BID 05/17/20 15:06 Metoprolol Inj [Lopressor Inj] 5 mg IVP Q6H PRN 05/17/20 17:00 Sodium Chloride Flush 0.9% [Normal Saline Flush 0.9%] 10 ml IVP 0100,0900,1700 05/17/20 21:00 ARIPiprazole [Abilify] 30 mg PO QPM Primidone [Mysoline] 250 mg PO BID 05/18/20 02:33 Min Oil/Dimeth/Coconut Oil Crm [Cavilon] 1 applic TOP PRN PRN 05/18/20 07:00 Pantoprazole [Protonix] 40 mg PO QDAC 05/18/20 09:00 Enoxaparin [Lovenox] 40 mg SUBQ 0900,2100 Lactobacillus Rhamnosus GG [Culturelle] 1 cap PO DAILY Mupirocin 2% Oint [Bactroban 2% Oint] 1 applic TOP DAILY levoFLOXacin 500 MG/100 ML [Levaquin 500 mg/100 ml] 500 mg in 100 ml IV Q24H lisinopriL [Zestril] 2.5 mg PO DAILY 05/18/20 09:19 Out of bed 3+ hours today [RC] TID 05/18/20 10:00 Bumetanide [Bumex] 2 mg PO DAILY 05/18/20 11:00 Nystatin [Nystop] 1 applic TOP DAILY 05/19/20 05:00 BMP - BASIC METABOLIC PANEL [CHEM] DAILYLAB CBC - COMP BLD CT W/AUTO DIFF [HEME] DAILYLAB 05/20/20 05:00 BMP - BASIC METABOLIC PANEL [CHEM] DAILYLAB CBC - COMP BLD CT W/AUTO DIFF [HEME] DAILYLAB 05/21/20 05:00 BMP - BASIC METABOLIC PANEL [CHEM] DAILYLAB CBC - COMP BLD CT W/AUTO DIFF [HEME] DAILYLAB Subjective - Subjective Patient Reports: Feeling Better Objective Vital Signs: Vital Signs - 24 hr 05/17/20 05/17/20 05/18/20 15:42 21:00 05:00 Temperature 36.6 C 36.4 C L Heart Rate [ 81 88 80 Brachial] Heart Rate [ Sitting] Heart Rate [ Supine] Respiratory 14 18 Rate Blood Pressure 110/48 L [Left Brachial artery] Blood Pressure 106/41 L 147/93 H [Right Brachial artery] Blood Pressure [Sitting] Blood Pressure [Supine] O2 Saturation 100 96 05/18/20 05/18/20 05/18/20 08:00 08:59 10:25 Temperature 36.2 C L Heart Rate [ 95 85 Brachial] Heart Rate [ 82 Sitting] Heart Rate [ 79 Supine] Respiratory 18 Rate Blood Pressure 125/41 L 114/44 L [Left Brachial artery] Blood Pressure [Right Brachial artery] Blood Pressure 117/54 L [Sitting] Blood Pressure 102/31 L [Supine] O2 Saturation 96 Oxygen O2 Source Room air I&O (Last 24 Hrs): Intake and Output Totals x24h 05/16/20 05/17/20 05/18/20 23:59 23:59 23:59 Intake Total 2265 1200 Output Total 1925 Balance 2265 -725 General: Alert, Cooperative, No acute distress HEENT: Atraumatic Neck: Supple Lymphatic: no adenopathy Neuro: Alert, Non Focal Cardiovascular: Regular rate, Normal S1, Normal S2 Respiratory: Chest non-tender, No respiratory distress Abdomen: Normal bowel sounds, Soft, No tenderness Extremities: Normal pulses - Results Results: Laboratory Results WBC 8.9 x10^3/uL (4.8-10.8) 05/18/20 04:25 RBC 3.45 10^6/uL (4.20-5.40) L 05/18/20 04:25 Hgb 10.9 g/dL (12.0-16.0) L 05/18/20 04:25 Hct 34.5 % (37.0-47.0) L 05/18/20 04:25 MCV 100.0 fL (81.0-99.0) H 05/18/20 04:25 MCH 31.6 pg (27.0-31.0) H 05/18/20 04:25 MCHC 31.6 g/dL (32.0-36.0) L 05/18/20 04:25 RDW 15.5 % (12.0-15.0) H 05/18/20 04:25 Plt Count 277 10^3/uL (130-450) 05/18/20 04:25 MPV 9.8 fL (7.9-10.8) 05/18/20 04:25 Neut # (Auto) 4.1 10^3/uL (1.5-6.6) 05/18/20 04:25 Lymph # (Auto) 3.5 10^3/uL (1.5-3.5) 05/18/20 04:25 [place] # (Auto) 0.9 10^3/uL (0.0-1.0) 05/18/20 04:25 Eos # (Auto) 0.4 10^3/uL (0.0-0.7) 05/18/20 04:25 Baso # (Auto) 0.0 10^3/uL (0.0-0.1) 05/18/20 04:25 Absolute Nucleated RBC 0.00 x10^3/uL 05/18/20 04:25 Nucleated RBC % 0.0 /100WBC 05/18/20 04:25 Sodium 138 mmol/L (135-145) 05/18/20 04:25 Potassium 3.7 mmol/L (3.5-5.0) 05/18/20 04:25 Chloride 99 mmol/L (101-111) L 05/18/20 04:25 Carbon Dioxide 29 mmol/L (21-32) 05/18/20 04:25 Anion Gap 10.0 (6-13) 05/18/20 04:25 BUN 21 mg/dL (6-20) H 05/18/20 04:25 Creatinine 0.5 mg/dL (0.4-1.0) 05/18/20 04:25 Estimated GFR (MDRD) 121 (>89) 05/18/20 04:25 Glucose 106 mg/dL (70-100) H 05/18/20 04:25 Lactic Acid 1.8 mmol/L (0.5-2.2) 05/17/20 13:59 Calcium 8.7 mg/dL (8.5-10.3) 05/18/20 04:25 Magnesium 2.4 mg/dL (1.7-2.8) 05/18/20 04:25 Total Bilirubin 0.4 mg/dL (0.2-1.0) 05/17/20 08:03 AST 50 IU/L (10-42) H 05/17/20 08:03 ALT 37 IU/L (10-60) 05/17/20 08:03 Alkaline Phosphatase 59 IU/L (42-121) 05/17/20 08:03 Total Creatine Kinase 360 IU/L (22-269) H 05/17/20 08:03 Troponin I High Sens 30.7 ng/L (2.3-14.8) H* 05/17/20 13:59 B-Natriuretic Peptide 215 pg/mL (5-100) H 05/18/20 04:25 Total Protein 6.8 g/dL (6.7-8.2) 05/17/20 08:03 Albumin 3.4 g/dL (3.2-5.5) 05/17/20 08:03 Globulin 3.4 g/dL (2.1-4.2) 05/17/20 08:03 Albumin/Globulin Ratio 1.0 (1.0-2.2) 05/17/20 08:03 Lipase 26 U/L (22-51) 05/17/20 08:03 TSH 2.07 uIU/mL (0.34-5.60) 05/18/20 04:25 Urine Color YELLOW 05/17/20 09:40 Urine Clarity CLEAR (CLEAR) 05/17/20 09:40 Urine pH 7.5 PH (5.0-7.5) 05/17/20 09:40 Ur Specific Alexander 1.010 (1.002-1.030) 05/17/20 09:40 Urine Protein NEGATIVE mg/dL (NEGATIVE) 05/17/20 09:40 Urine Glucose (UA) NEGATIVE mg/dL (NEGATIVE) 05/17/20 09:40 Urine Ketones NEGATIVE mg/dL (NEGATIVE) 05/17/20 09:40 Urine Occult Blood NEGATIVE (NEGATIVE) 05/17/20 09:40 Urine Nitrite NEGATIVE (NEGATIVE) 05/17/20 09:40 Urine Bilirubin NEGATIVE (NEGATIVE) 05/17/20 09:40 Urine Urobilinogen 0.2 (NORMAL) E.U./dL (NORMAL) 05/17/20 09:40 Ur Leukocyte Esterase TRACE (NEGATIVE) H 05/17/20 09:40 Urine RBC None Seen /HPF (0-5) 05/17/20 09:40 Urine WBC 6-10 /HPF (0-5) H 05/17/20 09:40 Ur Squamous Epith Cells FEW Squamous (<= Few) 05/17/20 09:40 Urine Bacteria Rare /HPF (None Seen) 05/17/20 09:40 Ur Microscopic Review INDICATED 05/17/20 09:40 Urine Culture Comments INDICATED 05/17/20 09:40 Salicylates < 6.0 mg/dL 05/17/20 08:03 Urine Opiates Screen NEGATIVE (NEGATIVE) 05/17/20 09:40 Ur Oxycodone Screen NEGATIVE (NEGATIVE) 05/17/20 09:40 Urine Methadone Screen NEGATIVE (NEGATIVE) 05/17/20 09:40 Ur Propoxyphene Screen NEGATIVE (NEGATIVE) 05/17/20 09:40 Acetaminophen < 10 ug/mL (10-30) L 05/17/20 08:03 Ur Barbiturates Screen POSITIVE (NEGATIVE) H 05/17/20 09:40 Ur Tricyclics Screen NEGATIVE (NEGATIVE) 05/17/20 09:40 Ur Phencyclidine Scrn NEGATIVE (NEGATIVE) 05/17/20 09:40 Ur Amphetamine Screen NEGATIVE (NEGATIVE) 05/17/20 09:40 U Methamphetamines Scrn NEGATIVE (NEGATIVE) 05/17/20 09:40 U Benzodiazepines Scrn NEGATIVE (NEGATIVE) 05/17/20 09:40 Urine Cocaine Screen NEGATIVE (NEGATIVE) 05/17/20 09:40 U Cannabinoids Screen NEGATIVE (NEGATIVE) 05/17/20 09:40 ABX Reporting Has patient been on IV antibiotics over the past 48 hours?: Yes Current Medications - Current Medications Current Medications: Active Medications Acetaminophen (Tylenol) 650 mg PO Q4HR PRN PRN Reason: Pain 1 to 4 Aripiprazole (Abilify) 30 mg PO QPM [facility] Last Admin: 05/17/20 21:04 Dose: 30 mg Documented by: Bumetanide (Bumex) 2 mg PO DAILY [facility] Last Admin: 05/18/20 11:47 Dose: 2 mg Documented by: Enoxaparin Sodium (Lovenox) 40 mg SUBQ 0900,2100 [facility] Last Admin: 05/18/20 09:10 Dose: 40 mg Documented by: Levofloxacin (Levaquin 500 Mg/100 Ml) 500 mg in 100 mls @ 100 mls/hr IV Q24H [facility] Last Infusion: 05/18/20 11:39 Dose: Infused Documented by: Lactobacillus Rhamnosus (Culturelle) 1 cap PO DAILY [facility] Last Admin: 05/18/20 09:12 Dose: 1 cap Documented by: Lisinopril (Zestril) 2.5 mg PO DAILY [facility] Last Admin: 05/18/20 11:13 Dose: Not Given Documented by: Metoprolol Tartrate (Lopressor Inj) 5 mg IVP Q6H PRN PRN Reason: Tachycardia Mineral Oil (Cavilon) 1 applic TOP PRN PRN PRN Reason: Skin Care Mupirocin (Bactroban 2% Oint) 1 applic TOP DAILY [facility] Last Admin: 05/18/20 11:11 Dose: 1 applic Documented by: Nystatin (Nystop) 1 applic TOP DAILY [facility] Last Admin: 05/18/20 11:11 Dose: 1 applic Documented by: Ondansetron HCl (Zofran Inj) 4 mg IVP Q6HR PRN PRN Reason: Nausea / Vomiting Oxycodone HCl (Roxicodone) 5 mg PO Q4HR PRN PRN Reason: Pain 5 to 7 Pantoprazole Sodium (Protonix) 40 mg PO QDAC [facility] Last Admin: 05/18/20 06:47 Dose: 40 mg Documented by: Primidone (Mysoline) 250 mg PO BID [facility] Last Admin: 05/18/20 09:11 Dose: 250 mg Documented by: Propranolol HCl (Inderal) 10 mg PO BID [facility] Last Admin: 05/18/20 11:13 Dose: Not Given Documented by: Sodium Chloride (Normal Saline Flush 0.9%) 10 ml IVP PRN PRN PRN Reason: NEEDED PER PROVIDER ORDERS Sodium Chloride (Normal Saline Flush 0.9%) 10 ml IVP 0100,0900,1700 [facility] Last Admin: 05/18/20 11:13 Dose: 10 ml Documented by: Primidone 250 mg PO BID 03/23/13 Aripiprazole [Abilify] 30 mg PO DAILY PM 04/28/14 Propranolol [Inderal] 10 mg PO BID 04/28/14 Bumetanide 10 mg PO DAILY 12/18/18 Folic Acid 1 mg PO DAILY 12/18/18 Calcium Carbonate/Vitamin D3 [Calcium 600-Vit D3 800 Caplet] 1 tab PO DAILY 03/01/19 Cyanocobalamin (Vitamin B-12) [Vitamin B-12] 1 tab PO DAILY 03/01/19 Magnesium 1 tab PO DAILY 03/01/19 Mupirocin 1 applic TD DAILY 03/01/19 Nystatin 1 applic TD DAILY 03/01/19 Isosorbide Mononitrate ER [Imdur] 30 mg PO DAILY 05/17/20 Potassium Chloride [Klor-Con 10] 10 meq PO DAILY 05/17/20
[2020-05-18] MEDS: METOPROLOL 5 MG/5 ML VIAL IVP PRN (18:15)
[2020-05-18] MEDS ORDERED: DILTIAZEM 50 MG/10 ML VIAL IVP STA (20:54)
[2020-05-18] MEDS ORDERED: diltiaZEM 30 MG TABLET PO SCH (21:00)
[2020-05-18] MEDS: ARIPiprazole 5 MG TABLET PO SCH (21:36)
[2020-05-19] MEDS: SODIUM CHLORIDE FLUSH 0.9% 10 ML SYRINGE IVP SCH ×3 (00:29→21:18)
[2020-05-19] MEDS: METOPROLOL 5 MG/5 ML VIAL IVP PRN (00:45)
[2020-05-19] MEDS: ACETAMINOPHEN 325 MG TABLET PO PRN (00:59)
[2020-05-19] MEDS ORDERED: diltiaZEM 30 MG TABLET PO SCH (03:00)
[2020-05-19 05:36] LABS: BASOPHILS # (AUTO) 0.1 10^3/uL (0.0-0.1); BASOPHILS % (AUTO) 0.5 %; EOSINOPHILS # (AUTO) 0.5 10^3/uL (0.0-0.7); HGB - HEMOGLOBIN 11.5 g/dL (12.0-16.0); LYMPHOCYTES # (AUTO) 2.9 10^3/uL (1.5-3.5); LYMPHOCYTES % (AUTO) 31.2 %; MEAN CORPUSCULAR HGB CONC 31.4 g/dL (32.0-36.0); MEAN CORPUSCULAR VOLUME 101.9 fL (81.0-99.0); MEAN PLATELET VOLUME 9.7 fL (7.9-10.8); MONOCYTES % (AUTO) 10.9 %; NEUTROPHILS # (AUTO) 4.8 10^3/uL (1.5-6.6); PLT - PLATELET COUNT 273 10^3/uL (130-450); RED BLOOD COUNT 3.59 10^6/uL (4.20-5.40); RED CELL DISTRIBUTION WIDTH 15.1 % (12.0-15.0); WHITE BLOOD COUNT 9.3 x10^3/uL (4.8-10.8)
[2020-05-19 06:02] LABS: CALCIUM 8.6 mg/dL (8.5-10.3); CREATININE 0.6 mg/dL (0.4-1.0)
[2020-05-19] MEDS: PANTOPRAZOLE 40 MG TABLET PO SCH (06:19)
[2020-05-19] MEDS ORDERED: POTASSIUM CHLORIDE 20 MEQ TABLET PO ONE (08:00)
[2020-05-19] MEDS: PROPRANOLOL 10 MG TABLET PO SCH (09:10)
[2020-05-19] MEDS: BUMETANIDE 1 MG TABLET PO SCH (09:10)
[2020-05-19] MEDS: PRIMIDONE 50 MG TABLET PO SCH ×2 (09:11→21:16)
[2020-05-19] MEDS: lisinopriL 5 MG TABLET PO SCH (09:11)
[2020-05-19] MEDS: LACTOBACILLUS RHAMNOSUS GG CAPSULE PO SCH (09:11)
[2020-05-19] MEDS: ENOXAPARIN 40 MG/0.4 ML SYRINGE SUBQ SCH (09:11)
[2020-05-19] MEDS: NYSTATIN POWDER 15 GM TOP SCH (09:12)
[2020-05-19] MEDS: MUPIROCIN 2% OINT 22 GM TUBE TOP SCH (09:12)
[2020-05-19] MEDS: levoFLOXacin 500 MG/100 ML 500 MG/100 ML BAG IV SCH (09:12)
[2020-05-19] MEDS ORDERED: METOPROLOL 5 MG/5 ML VIAL IVP PRN (11:08)
[2020-05-19] MEDS: METOPROLOL SUCCINATE 25 MG TABLET PO SCH ×2 (12:38→21:17)
--- NOTE | 2020-05-19 13:50 | PHARMACY PROGRESS NOTE ---
- Monitoring Indication for anticoagulation: Atrial Fibrillation Previous home regime: None noted Potentially interacting medications: Patient receiving primidone inpatient, and taking it at home. Primidone may decrease the effectiveness of Apixaban, resulting in an increased risk of thrombotic events. Other anticoagulation: None Risk factors for bleed: Hypertension, Age >65 - Recommendations Dosing: Anticoagulation Monitoring 05/19/20 05/18/20 05/17/20 05:13 04:25 08:03 Hgb 11.5 L 10.9 L 11.4 L Hct 36.6 L 34.5 L 35.7 L Last Dose Given: S&S of bleeding: Pharmacy recommendation: Continue current regime
--- NOTE | 2020-05-19 14:03 | PROVIDER PROGRESS NOTE ---
Assessment/Plan - Problem List (1) UTI (urinary tract infection) Qualifiers: Urinary tract infection type: site unspecified Hematuria presence: without hematuria Qualified Code(s): N39.0 - Urinary tract infection, site not specified (10) Atrial fibrillation with rapid ventricular response Assessment/Plan: 05/19 Since last night beginning, patient has atrial fibrillation with RVR, HR was in arrange of 130-150. Patient denies any palpation, shortness of breathing, chest pain, patient asymptomatic for this a fibrillation with RVR. Patient was given 5 mg metoprolol intravenous but patient also had two time 3-second pause. pt has CHADS-VASc score is 3, require anticoagulation. pt is Prescribed Eliquis. We will give the patient low dosage of intravenous metoprolol push and started with oral metoprolol. Will closely cardiac monitor patient, We will adjust medication as clinically needed. Updated and discussed patient medical condition and care plan with the patient's son, answer her son questions. (2) Systolic heart failure Conclusion/Plan: , patient's BNP increases, Patient take Bumex 10 mg in the home, we will resume, Since patient blood pressure can tolerate this. We will do daily weight also we will monitor patient fluids status, pt might need fluid restriction as needed. ,We will resume home diuretics Bumex, we will continue check BNP, continue beta-helio and low-dose of lisinopril Echo review patient had 40 to 45% of EF. We will continue home Beta-helio, We will try low dosage of lisinopril if patient tolerated for blood pressure. Continue telemetry and vital signs monitor (3)Generalized weakness , patient still present generalized weakness, physical therapist and occupational therapist recommendation patient discharge to SNF, consult with SW for D/C planing. We will continue to have physical therapist occupational therapist for patient. (4) Schizophrenia 05/19, Patient still sometime show hallucination, will continue home Abilify we will resume home medication Abilify (5) Hyperthyroidism 05/18 TSH normal (6) Seizure Stable, no seizure now, resume home medication primidone, Seizure precaution (7) HTN (hypertension) Conclusion/Plan: , patient blood pressure more stable, we will continue cardiac monitor Patient had soft blood pressure now, We will hold some of his home blood pressure medicine, Continue vital signs monitor (8) Elevated troponin Conclusion/Plan: 05/19 Patient's troponin is flat, patient denies any chest pain.We will continue telemetry and vital signs monitor. Patient started with Eliquis now. Patient Denies any chest pain, shortness of breathing right now. pt had slightly elevated troponin 27 at high-sensitivity troponin study, unchanged EKG. will continue do troponin study , Continue telemetry and vital signs monitor - Current Meds Current Meds: Current Medications Generic Name Dose Route Start Last Admin Trade Name Freq PRN Reason Stop Dose Admin Acetaminophen 650 mg 05/17/20 10:47 05/19/20 00:59 Tylenol PO 650 mg Q4HR PRN Administration Pain 1 to 4 Aripiprazole 30 mg 05/17/20 21:00 05/18/20 21:36 Abilify PO [address] Administration Bumetanide 10 mg 05/19/20 09:00 05/19/20 09:10 Bumex PO [address] Administration Lactobacillus Rhamnosus 1 cap 05/18/20 09:00 05/19/20 09:11 Culturelle PO [address] Administration Metoprolol Succinate 25 mg 05/19/20 11:00 05/19/20 12:38 Toprol Xl PO [address] Administration Metoprolol Tartrate 2.5 mg 05/19/20 11:08 05/19/20 13:29 Lopressor Inj IVP 2.5 mg Q6H PRN Administration Tachycardia Mupirocin 1 applic 05/18/20 09:00 05/19/20 09:12 Bactroban 2% Oint TOP [address] Administration Nystatin 1 applic 05/18/20 11:00 05/19/20 09:12 Nystop TOP [address] Administration Pantoprazole Sodium 40 mg 05/18/20 07:00 05/19/20 06:19 Protonix PO [address] Administration Primidone 250 mg 05/17/20 21:00 05/19/20 09:11 Mysoline PO [address] Administration Sodium Chloride 10 ml 05/17/20 17:00 05/19/20 09:11 Normal Saline Flush 0.9% IVP 20 ml 0100,0900,1700 LANE Administration - Lab Result Fish Bone Diagrams: 05/19/20 05:13 05/19/20 05:13 - Additional Planning My Orders: My Active Orders 05/19/20 09:00 Bumetanide [Bumex] 10 mg PO DAILY 05/19/20 09:09 Daily Weight [RC] 0605/19/20 11:00 Metoprolol Succinate [Toprol Xl] 25 mg PO BID 05/19/20 11:08 Metoprolol Inj [Lopressor Inj] 2.5 mg IVP Q6H PRN 05/19/20 21:00 Apixaban [Eliquis] 5 mg PO BID 05/20/20 COVID-19 REFERENCE TEST Routine 05/20/20 05:00 BMP - BASIC METABOLIC PANEL [CHEM] DAILYLAB BNP - B-NATRIURETIC PEPTIDE [IAI] DAILYLAB CBC - COMP BLD CT W/AUTO DIFF [HEME] DAILYLAB 05/21/20 05:00 BMP - BASIC METABOLIC PANEL [CHEM] DAILYLAB BNP - B-NATRIURETIC PEPTIDE [IAI] DAILYLAB CBC - COMP BLD CT W/AUTO DIFF [HEME] DAILYLAB 05/22/20 05:00 BNP - B-NATRIURETIC PEPTIDE [IAI] DAILYLAB Subjective - Subjective Patient Reports: Feeling Better Objective Vital Signs: Vital Signs - 24 hr 05/18/20 05/18/20 05/18/20 15:42 18:20 18:25 Temperature 36.6 C Heart Rate [ 100 121 H 114 H Brachial] Respiratory 20 Rate Blood Pressure Blood Pressure 117/43 L [Left Brachial artery] Blood Pressure 108/41 L 121/30 L [Right Brachial artery] O2 Saturation 98 05/18/20 05/18/20 05/18/20 18:30 18:45 19:15 Temperature Heart Rate [ 113 H 119 H 112 H Brachial] Respiratory Rate Blood Pressure 114/58 L Blood Pressure [Left Brachial artery] Blood Pressure 104/45 L 114/58 L 113/38 L [Right Brachial artery] O2 Saturation 05/18/20 05/19/20 05/19/20 21:00 00:43 00:50 Temperature 37.1 C 37.1 C Heart Rate [ 94 107 H 117 H Brachial] Respiratory 21 20 Rate Blood Pressure Blood Pressure [Left Brachial artery] Blood Pressure 127/47 L 110/39 L 109/48 L [Right Brachial artery] O2 Saturation 95 93 05/19/20 05/19/20 05/19/20 00:55 01:00 01:05 Temperature Heart Rate [ 98 117 H 109 H Brachial] Respiratory Rate Blood Pressure Blood Pressure [Left Brachial artery] Blood Pressure 100/45 L 106/56 L 115/57 L [Right Brachial artery] O2 Saturation 05/19/20 05/19/20 05/19/20 01:15 01:20 01:35 Temperature Heart Rate [ 95 97 Brachial] Respiratory Rate Blood Pressure 109/38 L Blood Pressure [Left Brachial artery] Blood Pressure 92/45 L 109/38 L [Right Brachial artery] O2 Saturation 05/19/20 05/19/20 05/19/20 01:50 03:35 07:53 Temperature 36.9 C 37.2 C Heart Rate [ 96 99 92 Brachial] Respiratory 18 22 Rate Blood Pressure Blood Pressure [Left Brachial artery] Blood Pressure 121/60 115/57 L 121/66 [Right Brachial artery] O2 Saturation 94 94 05/19/20 05/19/20 10:30 13:29 Temperature 36.8 C Heart Rate [ 133 H Brachial] Respiratory Rate Blood Pressure 154/128 H Blood Pressure [Left Brachial artery] Blood Pressure 132/66 H [Right Brachial artery] O2 Saturation 95 Oxygen O2 Source Room air I&O (Last 24 Hrs): Intake and Output Totals x24h 05/17/20 05/18/20 05/19/20 23:59 23:59 23:59 Intake Total 2265 2350 460 Output Total 4884 900 Balance 6775 -0975 -171 General: Alert, No acute distress HEENT: Atraumatic Neck: Supple Lymphatic: no adenopathy Neuro: Alert, Non Focal Cardiovascular: Normal S1, Normal S2 Respiratory: Chest non-tender, No respiratory distress Abdomen: Normal bowel sounds, Soft, No tenderness Extremities: Normal pulses - Results Results: Laboratory Results WBC 9.3 x10^3/uL (4.8-10.8) 05/19/20 05:13 RBC 3.59 10^6/uL (4.20-5.40) L 05/19/20 05:13 Hgb 11.5 g/dL (12.0-16.0) L 05/19/20 05:13 Hct 36.6 % (37.0-47.0) L 05/19/20 05:13 MCV 101.9 fL (81.0-99.0) H 05/19/20 05:13 MCH 32.0 pg (27.0-31.0) H 05/19/20 05:13 MCHC 31.4 g/dL (32.0-36.0) L 05/19/20 05:13 RDW 15.1 % (12.0-15.0) H 05/19/20 05:13 Plt Count 273 10^3/uL (130-450) 05/19/20 05:13 MPV 9.7 fL (7.9-10.8) 05/19/20 05:13 Neut # (Auto) 4.8 10^3/uL (1.5-6.6) 05/19/20 05:13 Lymph # (Auto) 2.9 10^3/uL (1.5-3.5) 05/19/20 05:13 [place] # (Auto) 1.0 10^3/uL (0.0-1.0) 05/19/20 05:13 Eos # (Auto) 0.5 10^3/uL (0.0-0.7) 05/19/20 05:13 Baso # (Auto) 0.1 10^3/uL (0.0-0.1) 05/19/20 05:13 Absolute Nucleated RBC 0.00 x10^3/uL 05/19/20 05:13 Nucleated RBC % 0.0 /100WBC 05/19/20 05:13 Sodium 139 mmol/L (135-145) 05/19/20 05:13 Potassium 3.3 mmol/L (3.5-5.0) L 05/19/20 05:13 Chloride 103 mmol/L (101-111) 05/19/20 05:13 Carbon Dioxide 26 mmol/L (21-32) 05/19/20 05:13 Anion Gap 10.0 (6-13) 05/19/20 05:13 BUN 20 mg/dL (6-20) 05/19/20 05:13 Creatinine 0.6 mg/dL (0.4-1.0) 05/19/20 05:13 Estimated GFR (MDRD) 98 (>89) 05/19/20 05:13 Glucose 143 mg/dL (70-100) H 05/19/20 05:13 Lactic Acid 1.8 mmol/L (0.5-2.2) 05/17/20 13:59 Calcium 8.6 mg/dL (8.5-10.3) 05/19/20 05:13 Magnesium 2.4 mg/dL (1.7-2.8) 05/18/20 04:25 Total Bilirubin 0.4 mg/dL (0.2-1.0) 05/17/20 08:03 AST 50 IU/L (10-42) H 05/17/20 08:03 ALT 37 IU/L (10-60) 05/17/20 08:03 Alkaline Phosphatase 59 IU/L (42-121) 05/17/20 08:03 Total Creatine Kinase 360 IU/L (22-269) H 05/17/20 08:03 Troponin I High Sens 30.7 ng/L (2.3-14.8) H* 05/17/20 13:59 B-Natriuretic Peptide 740 pg/mL (5-100) H 05/19/20 05:13 Total Protein 6.8 g/dL (6.7-8.2) 05/17/20 08:03 Albumin 3.4 g/dL (3.2-5.5) 05/17/20 08:03 Globulin 3.4 g/dL (2.1-4.2) 05/17/20 08:03 Albumin/Globulin Ratio 1.0 (1.0-2.2) 05/17/20 08:03 Lipase 26 U/L (22-51) 05/17/20 08:03 TSH 2.07 uIU/mL (0.34-5.60) 05/18/20 04:25 Urine Color YELLOW 05/17/20 09:40 Urine Clarity CLEAR (CLEAR) 05/17/20 09:40 Urine pH 7.5 PH (5.0-7.5) 05/17/20 09:40 Ur Specific [place] 1.010 (1.002-1.030) 05/17/20 09:40 Urine Protein NEGATIVE mg/dL (NEGATIVE) 05/17/20 09:40 Urine Glucose (UA) NEGATIVE mg/dL (NEGATIVE) 05/17/20 09:40 Urine Ketones NEGATIVE mg/dL (NEGATIVE) 05/17/20 09:40 Urine Occult Blood NEGATIVE (NEGATIVE) 05/17/20 09:40 Urine Nitrite NEGATIVE (NEGATIVE) 05/17/20 09:40 Urine Bilirubin NEGATIVE (NEGATIVE) 05/17/20 09:40 Urine Urobilinogen 0.2 (NORMAL) E.U./dL (NORMAL) 05/17/20 09:40 Ur Leukocyte Esterase TRACE (NEGATIVE) H 05/17/20 09:40 Urine RBC None Seen /HPF (0-5) 05/17/20 09:40 Urine WBC 6-10 /HPF (0-5) H 05/17/20 09:40 Ur Squamous Epith Cells FEW Squamous (<= Few) 05/17/20 09:40 Urine Bacteria Rare /HPF (None Seen) 05/17/20 09:40 Ur Microscopic Review INDICATED 05/17/20 09:40 Urine Culture Comments INDICATED 05/17/20 09:40 Salicylates < 6.0 mg/dL 05/17/20 08:03 Urine Opiates Screen NEGATIVE (NEGATIVE) 05/17/20 09:40 Ur Oxycodone Screen NEGATIVE (NEGATIVE) 05/17/20 09:40 Urine Methadone Screen NEGATIVE (NEGATIVE) 05/17/20 09:40 Ur Propoxyphene Screen NEGATIVE (NEGATIVE) 05/17/20 09:40 Acetaminophen < 10 ug/mL (10-30) L 05/17/20 08:03 Ur Barbiturates Screen POSITIVE (NEGATIVE) H 05/17/20 09:40 Ur Tricyclics Screen NEGATIVE (NEGATIVE) 05/17/20 09:40 Ur Phencyclidine Scrn NEGATIVE (NEGATIVE) 05/17/20 09:40 Ur Amphetamine Screen NEGATIVE (NEGATIVE) 05/17/20 09:40 U Methamphetamines Scrn NEGATIVE (NEGATIVE) 05/17/20 09:40 U Benzodiazepines Scrn NEGATIVE (NEGATIVE) 05/17/20 09:40 Urine Cocaine Screen NEGATIVE (NEGATIVE) 05/17/20 09:40 U Cannabinoids Screen NEGATIVE (NEGATIVE) 05/17/20 09:40 ABX Reporting Has patient been on IV antibiotics over the past 48 hours?: No Current Medications - Current Medications Current Medications: Active Medications Acetaminophen (Tylenol) 650 mg PO Q4HR PRN PRN Reason: Pain 1 to 4 Last Admin: 05/19/20 00:59 Dose: 650 mg Documented by: Apixaban (Eliquis) [address] Aripiprazole (Abilify) [address] Last Admin: 05/18/20 21:36 Dose: 30 mg Documented by: Bumetanide (Bumex) 10 mg PO DAILY [facility] Last Admin: 05/19/20 09:10 Dose: 10 mg Documented by: Lactobacillus Rhamnosus (Culturelle) 1 cap PO DAILY [facility] Last Admin: 05/19/20 09:11 Dose: 1 cap Documented by: Lisinopril (Zestril) 2.5 mg PO DAILY [facility] Metoprolol Succinate (Toprol Xl) 25 mg PO BID [facility] Last Admin: 05/19/20 12:38 Dose: 25 mg Documented by: Metoprolol Tartrate (Lopressor Inj) 2.5 mg IVP Q6H PRN PRN Reason: Tachycardia Last Admin: 05/19/20 13:29 Dose: 2.5 mg Documented by: Mineral Oil (Cavilon) 1 applic TOP PRN PRN PRN Reason: Skin Care Mupirocin (Bactroban 2% Oint) 1 applic TOP DAILY [facility] Last Admin: 05/19/20 09:12 Dose: 1 applic Documented by: Nystatin (Nystop) 1 applic TOP DAILY [facility] Last Admin: 05/19/20 09:12 Dose: 1 applic Documented by: Ondansetron HCl (Zofran Inj) 4 mg IVP Q6HR PRN PRN Reason: Nausea / Vomiting Oxycodone HCl (Roxicodone) 5 mg PO Q4HR PRN PRN Reason: Pain 5 to 7 Pantoprazole Sodium (Protonix) 40 mg PO QDAC [facility] Last Admin: 05/19/20 06:19 Dose: 40 mg Documented by: Primidone (Mysoline) 250 mg PO BID [facility] Last Admin: 05/19/20 09:11 Dose: 250 mg Documented by: Sodium Chloride (Normal Saline Flush 0.9%) 10 ml IVP PRN PRN PRN Reason: NEEDED PER PROVIDER ORDERS Sodium Chloride (Normal Saline Flush 0.9%) 10 ml IVP 0100,0900,1700 [facility] Last Admin: 05/19/20 09:11 Dose: 20 ml Documented by: Primidone 250 mg PO BID 03/23/13 Aripiprazole [Abilify] 30 mg PO DAILY PM 04/28/14 Propranolol [Inderal] 10 mg PO BID 04/28/14 Bumetanide 10 mg PO DAILY 12/18/18 Folic Acid 1 mg PO DAILY 12/18/18 Calcium Carbonate/Vitamin D3 [Calcium 600-Vit D3 800 Caplet] 1 tab PO DAILY 03/01/19 Cyanocobalamin (Vitamin B-12) [Vitamin B-12] 1 tab PO DAILY 03/01/19 Magnesium 1 tab PO DAILY 03/01/19 Mupirocin 1 applic TD DAILY 03/01/19 Nystatin 1 applic TD DAILY 03/01/19 Isosorbide Mononitrate ER [Imdur] 30 mg PO DAILY 05/17/20 Potassium Chloride [Klor-Con 10] 10 meq PO DAILY 05/17/20
[2020-05-19] MEDS ORDERED: METOPROLOL 5 MG/5 ML VIAL IVP SCH (14:18)
[2020-05-19] MEDS: ARIPiprazole 5 MG TABLET PO SCH (21:16)
[2020-05-19] MEDS: APIXABAN 5 MG TABLET PO SCH (21:18)
[2020-05-20] MEDS: SODIUM CHLORIDE FLUSH 0.9% 10 ML SYRINGE IVP SCH ×3 (00:22→16:11)
[2020-05-20] MEDS ORDERED: METOPROLOL 5 MG/5 ML VIAL IVP PRN (00:42)
[2020-05-20] MEDS: ACETAMINOPHEN 325 MG TABLET PO PRN ×3 (03:36→16:11)
[2020-05-20] MEDS: PANTOPRAZOLE 40 MG TABLET PO SCH (06:17)
[2020-05-20 06:21] LABS: BASOPHILS % (AUTO) 0.4 %; EOSINOPHILS # (AUTO) 0.8 10^3/uL (0.0-0.7); EOSINOPHILS % (AUTO) 8.7 %; HGB - HEMOGLOBIN 11.7 g/dL (12.0-16.0); LYMPHOCYTES # (AUTO) 2.9 10^3/uL (1.5-3.5); LYMPHOCYTES % (AUTO) 32.6 %; MEAN CORPUSCULAR HEMOGLOBIN 31.6 pg (27.0-31.0); MEAN CORPUSCULAR HGB CONC 31.6 g/dL (32.0-36.0); MEAN PLATELET VOLUME 9.7 fL (7.9-10.8); MONOCYTES % (AUTO) 10.6 %; NEUTROPHILS # (AUTO) 4.3 10^3/uL (1.5-6.6); NEUTROPHILS % (AUTO) 47.3 %; PLT - PLATELET COUNT 303 10^3/uL (130-450); RED CELL DISTRIBUTION WIDTH 15.2 % (12.0-15.0)
[2020-05-20 06:34] LABS: CALCIUM 8.5 mg/dL (8.5-10.3); CREATININE 0.6 mg/dL (0.4-1.0)
[2020-05-20] MEDS: BUMETANIDE 1 MG TABLET PO SCH (09:02)
[2020-05-20] MEDS: PRIMIDONE 50 MG TABLET PO SCH ×2 (09:02→21:35)
[2020-05-20] MEDS: METOPROLOL SUCCINATE 25 MG TABLET PO SCH ×2 (09:03→21:35)
[2020-05-20] MEDS: lisinopriL 5 MG TABLET PO SCH (09:03)
[2020-05-20] MEDS: LACTOBACILLUS RHAMNOSUS GG CAPSULE PO SCH (09:03)
[2020-05-20] MEDS: NYSTATIN POWDER 15 GM TOP SCH ×2 (09:04→16:36)
[2020-05-20] MEDS: MUPIROCIN 2% OINT 22 GM TUBE TOP SCH (09:04)
[2020-05-20] MEDS: APIXABAN 5 MG TABLET PO SCH ×2 (09:53→21:35)
--- NOTE | 2020-05-20 15:57 | PROVIDER PROGRESS NOTE ---
Assessment/Plan - Problem List (1) UTI (urinary tract infection) Qualifiers: Urinary tract infection type: site unspecified Hematuria presence: without hematuria Qualified Code(s): N39.0 - Urinary tract infection, site not specified Assessment/Plan: She received ceftriaxone and Levaquin. Continue to treat UTI empirically. Await blood and urine cultures (2) Atrial fibrillation with rapid ventricular response Assessment/Plan: Resolved and pt converted to NSR overnight, after again having a long pause. Her meds were adjusted to resume p.o. beta-blockers and spread out to prevent hypotension and pauses.Darted on Eliquis by last provider however today's pharmacist Opal, stated that all the DOACs interact with Primidone which she is on for seizures, therefore she needs to be on Coumadin. We will discuss with patient. (3) Generalized weakness Assessment/Plan: She needed physical therapy to start rehab while here and PT has recommended that she have more rehab at a SNF. The patient agrees with this. The patient was planned to be discharged to [facility] tomorrow (4) Schizophrenia Assessment/Plan: Stable on current meds (5) Seizure Assessment/Plan: Stable on current meds (6) Systolic CHF, acute on chronic Assessment/Plan: No cardiopulmonary complaint (7) HTN (hypertension) Assessment/Plan: Stable on current meds - Current Meds Current Meds: Current Medications Generic Name Dose Route Start Last Admin Trade Name Freq PRN Reason Stop Dose Admin Acetaminophen 650 mg 05/17/20 10:47 05/20/20 09:02 Tylenol PO 650 mg Q4HR PRN Administration Pain 1 to 4 Apixaban 5 mg 05/19/20 21:00 05/20/20 09:53 Eliquis PO Not Given BID LANE Aripiprazole 30 mg 05/17/20 21:00 05/19/20 21:16 Abilify PO [address] Administration Bumetanide 10 mg 05/19/20 09:00 05/20/20 09:02 Bumex PO [address] Administration Lactobacillus Rhamnosus 1 cap 05/18/20 09:00 05/20/20 09:03 Culturelle PO [address] Administration Lisinopril 2.5 mg 05/19/20 10:43 05/20/20 09:03 Zestril PO 2.[address] Administration Metoprolol Succinate 25 mg 05/19/20 11:00 05/20/20 09:03 Toprol Xl PO [address] Administration Mupirocin 1 applic 05/18/20 09:00 05/20/20 09:04 Bactroban 2% Oint TOP [address] Administration Nystatin 1 applic 05/18/20 11:00 05/20/20 09:04 Nystop TOP [address] Administration Pantoprazole Sodium 40 mg 05/18/20 07:00 05/20/20 06:17 Protonix PO [address] Administration Primidone 250 mg 05/17/20 21:00 05/20/20 09:02 Mysoline PO [address] Administration Sodium Chloride 10 ml 05/17/20 10:47 05/19/20 14:29 Normal Saline Flush 0.9% IVP 50 ml PRN PRN Administration NEEDED PER PROVIDER ORDERS Sodium Chloride 10 ml 05/17/20 17:00 05/20/20 09:03 Normal Saline Flush 0.9% IVP 10 ml 0100,0900,1700 LANE Administration - Lab Result Fish Bone Diagrams: 05/21/20 05:15 05/21/20 05:15 Objective Vital Signs: Vital Signs - 24 hr 05/19/20 05/19/20 05/19/20 16:19 17:30 20:04 Temperature 36.6 C Heart Rate [ 115 H Apical] Heart Rate [ 122 H 132 H 80 Brachial] Heart Rate [ 111 H 105 H Radial] Respiratory 18 Rate Blood Pressure 132/86 H 112/63 110/59 L [Left Brachial artery] Blood Pressure [Right Brachial artery] O2 Saturation 95 05/20/20 05/20/20 05/20/20 00:55 01:31 02:03 Temperature 37.2 C Heart Rate [ 74 Apical] Heart Rate [ 101 H Brachial] Heart Rate [ Radial] Respiratory 18 Rate Blood Pressure 132/66 H 97/39 L 91/38 L [Left Brachial artery] Blood Pressure [Right Brachial artery] O2 Saturation 96 05/20/20 05/20/20 05/20/20 02:20 03:52 07:51 Temperature 36.4 C L 36.8 C Heart Rate [ Apical] Heart Rate [ 76 76 Brachial] Heart Rate [ Radial] Respiratory 17 20 Rate Blood Pressure 101/45 L 105/45 L [Left Brachial artery] Blood Pressure 113/44 L [Right Brachial artery] O2 Saturation 93 96 05/20/20 12:36 Temperature 36.4 C L Heart Rate [ Apical] Heart Rate [ 73 Brachial] Heart Rate [ Radial] Respiratory 16 Rate Blood Pressure 114/46 L [Left Brachial artery] Blood Pressure [Right Brachial artery] O2 Saturation 97 Oxygen O2 Source Room air I&O (Last 24 Hrs): Intake and Output Totals x24h 05/18/20 05/19/20 05/20/20 23:59 23:59 23:59 Intake Total 2350 1430 960 Output Total 4831 4300 2700 Balance -7850 -3494 -1796 General: Alert, No acute distress HEENT: Mucous membr. moist/pink Neck: Supple, No JVD Neuro: Alert, Disoriented (She thought it was the morning and I was in the room at 4:30 PM) Cardiovascular: No murmurs Respiratory: No respiratory distress Abdomen: Soft Extremities: No edema - Results Results: Laboratory Results WBC 9.0 x10^3/uL (4.8-10.8) 05/20/20 05:35 RBC 3.70 10^6/uL (4.20-5.40) L 05/20/20 05:35 Hgb 11.7 g/dL (12.0-16.0) L 05/20/20 05:35 Hct 37.0 % (37.0-47.0) 05/20/20 05:35 MCV 100.0 fL (81.0-99.0) H 05/20/20 05:35 MCH 31.6 pg (27.0-31.0) H 05/20/20 05:35 MCHC 31.6 g/dL (32.0-36.0) L 05/20/20 05:35 RDW 15.2 % (12.0-15.0) H 05/20/20 05:35 Plt Count 303 10^3/uL (130-450) 05/20/20 05:35 MPV 9.7 fL (7.9-10.8) 05/20/20 05:35 Neut # (Auto) 4.3 10^3/uL (1.5-6.6) 05/20/20 05:35 Lymph # (Auto) 2.9 10^3/uL (1.5-3.5) 05/20/20 05:35 [place] # (Auto) 1.0 10^3/uL (0.0-1.0) 05/20/20 05:35 Eos # (Auto) 0.8 10^3/uL (0.0-0.7) H 05/20/20 05:35 Baso # (Auto) 0.0 10^3/uL (0.0-0.1) 05/20/20 05:35 Absolute Nucleated RBC 0.00 x10^3/uL 05/20/20 05:35 Nucleated RBC % 0.0 /100WBC 05/20/20 05:35 Sodium 135 mmol/L (135-145) 05/20/20 05:35 Potassium 3.5 mmol/L (3.5-5.0) 05/20/20 05:35 Chloride 98 mmol/L (101-111) L 05/20/20 05:35 Carbon Dioxide 26 mmol/L (21-32) 05/20/20 05:35 Anion Gap 11.0 (6-13) 05/20/20 05:35 BUN 18 mg/dL (6-20) 05/20/20 05:35 Creatinine 0.6 mg/dL (0.4-1.0) 05/20/20 05:35 Estimated GFR (MDRD) 98 (>89) 05/20/20 05:35 Glucose 164 mg/dL (70-100) H 05/20/20 05:35 Lactic Acid 1.8 mmol/L (0.5-2.2) 05/17/20 13:59 Calcium 8.5 mg/dL (8.5-10.3) 05/20/20 05:35 Magnesium 2.4 mg/dL (1.7-2.8) 05/18/20 04:25 Total Bilirubin 0.4 mg/dL (0.2-1.0) 05/17/20 08:03 AST 50 IU/L (10-42) H 05/17/20 08:03 ALT 37 IU/L (10-60) 05/17/20 08:03 Alkaline Phosphatase 59 IU/L (42-121) 05/17/20 08:03 Total Creatine Kinase 360 IU/L (22-269) H 05/17/20 08:03 Troponin I High Sens 30.7 ng/L (2.3-14.8) H* 05/17/20 13:59 B-Natriuretic Peptide 336 pg/mL (5-100) H 05/20/20 05:35 Total Protein 6.8 g/dL (6.7-8.2) 05/17/20 08:03 Albumin 3.4 g/dL (3.2-5.5) 05/17/20 08:03 Globulin 3.4 g/dL (2.1-4.2) 05/17/20 08:03 Albumin/Globulin Ratio 1.0 (1.0-2.2) 05/17/20 08:03 Lipase 26 U/L (22-51) 05/17/20 08:03 TSH 2.07 uIU/mL (0.34-5.60) 05/18/20 04:25 Urine Color YELLOW 05/17/20 09:40 Urine Clarity CLEAR (CLEAR) 05/17/20 09:40 Urine pH 7.5 PH (5.0-7.5) 05/17/20 09:40 Ur Specific [place] 1.010 (1.002-1.030) 05/17/20 09:40 Urine Protein NEGATIVE mg/dL (NEGATIVE) 05/17/20 09:40 Urine Glucose (UA) NEGATIVE mg/dL (NEGATIVE) 05/17/20 09:40 Urine Ketones NEGATIVE mg/dL (NEGATIVE) 05/17/20 09:40 Urine Occult Blood NEGATIVE (NEGATIVE) 05/17/20 09:40 Urine Nitrite NEGATIVE (NEGATIVE) 05/17/20 09:40 Urine Bilirubin NEGATIVE (NEGATIVE) 05/17/20 09:40 Urine Urobilinogen 0.2 (NORMAL) E.U./dL (NORMAL) 05/17/20 09:40 Ur Leukocyte Esterase TRACE (NEGATIVE) H 05/17/20 09:40 Urine RBC None Seen /HPF (0-5) 05/17/20 09:40 Urine WBC 6-10 /HPF (0-5) H 05/17/20 09:40 Ur Squamous Epith Cells FEW Squamous (<= Few) 05/17/20 09:40 Urine Bacteria Rare /HPF (None Seen) 05/17/20 09:40 Ur Microscopic Review INDICATED 05/17/20 09:40 Urine Culture Comments INDICATED 05/17/20 09:40 Salicylates < 6.0 mg/dL 05/17/20 08:03 Urine Opiates Screen NEGATIVE (NEGATIVE) 05/17/20 09:40 Ur Oxycodone Screen NEGATIVE (NEGATIVE) 05/17/20 09:40 Urine Methadone Screen NEGATIVE (NEGATIVE) 05/17/20 09:40 Ur Propoxyphene Screen NEGATIVE (NEGATIVE) 05/17/20 09:40 Acetaminophen < 10 ug/mL (10-30) L 05/17/20 08:03 Ur Barbiturates Screen POSITIVE (NEGATIVE) H 05/17/20 09:40 Ur Tricyclics Screen NEGATIVE (NEGATIVE) 05/17/20 09:40 Ur Phencyclidine Scrn NEGATIVE (NEGATIVE) 05/17/20 09:40 Ur Amphetamine Screen NEGATIVE (NEGATIVE) 05/17/20 09:40 U Methamphetamines Scrn NEGATIVE (NEGATIVE) 05/17/20 09:40 U Benzodiazepines Scrn NEGATIVE (NEGATIVE) 05/17/20 09:40 Urine Cocaine Screen NEGATIVE (NEGATIVE) 05/17/20 09:40 U Cannabinoids Screen NEGATIVE (NEGATIVE) 05/17/20 09:40
[2020-05-20] MEDS: ZINC OXIDE 20% OINT 30 GM TUBE TOP PRN (16:36)
[2020-05-20] MEDS: ARIPiprazole 5 MG TABLET PO SCH (21:35)
[2020-05-20] MEDS: traZODone 50 MG TABLET PO SCH (21:35)
[2020-05-21] MEDS: SODIUM CHLORIDE FLUSH 0.9% 10 ML SYRINGE IVP SCH ×4 (00:19→23:52)
[2020-05-21] MEDS: ZINC OXIDE 20% OINT 30 GM TUBE TOP PRN ×2 (04:20→20:55)
[2020-05-21 05:51] LABS: BASOPHILS % (AUTO) 0.5 %; EOSINOPHILS % (AUTO) 10.2 %; HGB - HEMOGLOBIN 12.5 g/dL (12.0-16.0); LYMPHOCYTES % (AUTO) 32.3 %; MEAN CORPUSCULAR HEMOGLOBIN 33.6 pg (27.0-31.0); MEAN CORPUSCULAR HGB CONC 34.1 g/dL (32.0-36.0); MEAN CORPUSCULAR VOLUME 98.7 fL (81.0-99.0); MEAN PLATELET VOLUME 9.8 fL (7.9-10.8); MONOCYTES % (AUTO) 10.6 %; PLT - PLATELET COUNT 333 10^3/uL (130-450); RED BLOOD COUNT 3.72 10^6/uL (4.20-5.40); RED CELL DISTRIBUTION WIDTH 15.2 % (12.0-15.0); WHITE BLOOD COUNT 9.9 x10^3/uL (4.8-10.8)
[2020-05-21 05:57] LABS: ABNORMAL LYMPHS % (MANUAL) 0 %
[2020-05-21 06:02] LABS: CALCIUM 8.8 mg/dL (8.5-10.3); CREATININE 0.6 mg/dL (0.4-1.0)
[2020-05-21] MEDS: PANTOPRAZOLE 40 MG TABLET PO SCH (06:08)
[2020-05-21 06:16] LABS: BAND NEUTROPHILS % (MANUAL) 1 %; BASOPHILS # (MANUAL) 0.2 10^3/uL (0-0.1); BASOPHILS % (MANUAL) 2 %; EOSINOPHILS # (MANUAL) 0.8 10^3/uL (0-0.7); LYMPHOCYTES # (MANUAL) 3.7 10^3/uL (1.5-3.5); LYMPHOCYTES % (MANUAL) 37 %; MONOCYTES # (MANUAL) 0.9 10^3/uL (0.0-1.0); RBC MORPHOLOGY (MULTIPLE) NORMAL APPEARANCE (NORMAL)
[2020-05-21 06:17] LABS: DIFFERENTIAL COMMENT MANUAL DIFFERENTIAL; PLATELET ESTIMATE, MANUAL NORMAL (130-450,000) (NORMAL); PLATELET MORPHOLOGY NORMAL APPEARANCE (NORMAL)
[2020-05-21] MEDS: LACTOBACILLUS RHAMNOSUS GG CAPSULE PO SCH (08:39)
[2020-05-21] MEDS: ACETAMINOPHEN 325 MG TABLET PO PRN (08:39)
[2020-05-21] MEDS: lisinopriL 5 MG TABLET PO SCH (08:39)
[2020-05-21] MEDS: BUMETANIDE 1 MG TABLET PO SCH (08:39)
[2020-05-21] MEDS: METOPROLOL SUCCINATE 25 MG TABLET PO SCH ×2 (08:39→20:57)
[2020-05-21] MEDS: PRIMIDONE 50 MG TABLET PO SCH ×2 (08:39→20:56)
[2020-05-21] MEDS: APIXABAN 5 MG TABLET PO SCH ×2 (08:40→20:56)
[2020-05-21] MEDS: MUPIROCIN 2% OINT 22 GM TUBE TOP SCH (08:40)
--- NOTE | 2020-05-21 18:49 | PROVIDER PROGRESS NOTE ---
Assessment/Plan - Problem List (1) UTI (urinary tract infection) Qualifiers: Urinary tract infection type: site unspecified Hematuria presence: without hematuria Qualified Code(s): N39.0 - Urinary tract infection, site not specified Assessment/Plan: She received levofloxacin and received ceftriaxone. I cannot tell when these were stopped. Urine culture has grown nothing and blood culture has grown nothing. Planning to complete a course of antibiotics, will resume 2-3 more days of levaquin po. (2) Atrial fibrillation with rapid ventricular response Assessment/Plan: Rate has now been controlled with spreading out her beta-helio. Xarelto was started for stroke prophylaxis (3) Generalized weakness Assessment/Plan: She is working with PT and progressing, cooperating. Plan is to go to SNF. COVID result did not return today, postponing her discharge to SNF (4) Schizophrenia Assessment/Plan: Stableon her current meds (5) Seizure Assessment/Plan: Stable on her current meds (6) Systolic CHF, acute on chronic Assessment/Plan: Stable cardiopulmonary status (7) HTN (hypertension) Assessment/Plan: BP stable. - Current Meds Current Meds: Current Medications Generic Name Dose Route Start Last Admin Trade Name Freq PRN Reason Stop Dose Admin Acetaminophen 650 mg 05/17/20 10:47 05/21/20 08:39 Tylenol PO 650 mg Q4HR PRN Administration Pain 1 to 4 Apixaban 5 mg 05/19/20 21:00 05/21/20 08:40 Eliquis PO [address] Administration Aripiprazole 30 mg 05/17/20 21:00 05/20/20 21:35 Abilify PO [address] Administration Bumetanide 10 mg 05/19/20 09:00 05/21/20 08:39 Bumex PO [address] Administration Lactobacillus Rhamnosus 1 cap 05/18/20 09:00 05/21/20 08:39 Culturelle PO [address] Administration Lisinopril 2.5 mg 05/19/20 10:43 05/21/20 08:39 Zestril PO 2.[address] Administration Metoprolol Succinate 25 mg 05/19/20 11:00 05/21/20 08:39 Toprol Xl PO [address] Administration Multi-Ingredient Ointment 1 applic 05/20/20 13:02 05/21/20 04:20 Zinc Oxide TOP 1 applic PRN PRN Administration Skin Care Mupirocin 1 applic 05/18/20 09:00 05/21/20 08:40 Bactroban 2% Oint TOP [address] Administration Nystatin 1 applic 05/18/20 11:00 05/20/20 16:36 Nystop TOP [address] Administration Pantoprazole Sodium 40 mg 05/18/20 07:00 05/21/20 06:08 Protonix PO [address] Administration Primidone 250 mg 05/17/20 21:00 05/21/20 08:39 Mysoline PO [address] Administration Sodium Chloride 10 ml 05/17/20 10:47 05/19/20 14:29 Normal Saline Flush 0.9% IVP 50 ml PRN PRN Administration NEEDED PER PROVIDER ORDERS Sodium Chloride 10 ml 05/17/20 17:00 05/21/20 16:45 Normal Saline Flush 0.9% IVP 10 ml 0100,0900,1700 LANE Administration Trazodone HCl 50 mg 05/20/20 21:00 05/20/20 21:35 Desyrel PO [address] Administration - Lab Result Fish Bone Diagrams: 05/21/20 05:15 05/21/20 05:15 Objective Vital Signs: Vital Signs - 24 hr 05/20/20 05/20/20 05/21/20 20:40 21:08 00:10 Temperature 37.2 C 37.0 C Heart Rate [ 75 Apical] Heart Rate [ 76 73 Brachial] Heart Rate [ Radial] Respiratory 18 18 Rate Blood Pressure 97/40 L 120/44 L [Left Brachial artery] Blood Pressure 111/38 L [Right Brachial artery] O2 Saturation 96 96 05/21/20 05/21/20 05/21/20 04:21 06:48 07:29 Temperature 37.0 C 37.2 C 36.7 C Heart Rate [ Apical] Heart Rate [ 70 77 Brachial] Heart Rate [ 71 Radial] Respiratory 18 18 20 Rate Blood Pressure [Left Brachial artery] Blood Pressure 115/35 L 96/31 L 116/33 L [Right Brachial artery] O2 Saturation 94 97 96 05/21/20 05/21/20 13:49 17:00 Temperature 36.8 C 36.1 C L Heart Rate [ Apical] Heart Rate [ 74 73 Brachial] Heart Rate [ Radial] Respiratory 16 18 Rate Blood Pressure [Left Brachial artery] Blood Pressure 109/38 L 105/50 L [Right Brachial artery] O2 Saturation 95 95 Oxygen O2 Source Room air I&O (Last 24 Hrs): Intake and Output Totals x24h 05/19/20 05/20/20 05/21/20 23:59 23:59 23:59 Intake Total 1430 1700 1080 Output Total 4300 3800 4600 Balance -8830 -2100 -3520 General: Alert Neuro: Non Focal Respiratory: No respiratory distress Abdomen: Soft Extremities: No edema - Results Results: Laboratory Results WBC 9.9 x10^3/uL (4.8-10.8) 05/21/20 05:15 RBC 3.72 10^6/uL (4.20-5.40) L 05/21/20 05:15 Hgb 12.5 g/dL (12.0-16.0) 05/21/20 05:15 Hct 36.7 % (37.0-47.0) L 05/21/20 05:15 MCV 98.7 fL (81.0-99.0) 05/21/20 05:15 MCH 33.6 pg (27.0-31.0) H 05/21/20 05:15 MCHC 34.1 g/dL (32.0-36.0) 05/21/20 05:15 RDW 15.2 % (12.0-15.0) H 05/21/20 05:15 Plt Count 333 10^3/uL (130-450) 05/21/20 05:15 MPV 9.8 fL (7.9-10.8) 05/21/20 05:15 Neut # (Auto) Not Reportable 05/21/20 05:15 Lymph # (Auto) Not Reportable 05/21/20 05:15 [place] # (Auto) Not Reportable 05/21/20 05:15 Eos # (Auto) Not Reportable 05/21/20 05:15 Baso # (Auto) Not Reportable 05/21/20 05:15 Absolute Nucleated RBC Not Reportable 05/21/20 05:15 Total Counted 100 05/21/20 05:15 Band Neuts % (Manual) 1 % (0-10) 05/21/20 05:15 Abnorm Lymph % (Manual) 0 % 05/21/20 05:15 Nucleated RBC % Not Reportable 05/21/20 05:15 Neutrophils # (Manual) 4.4 10^3/uL (1.5-6.6) 05/21/20 05:15 Lymphocytes # (Manual) 3.7 10^3/uL (1.5-3.5) H 05/21/20 05:15 Monocytes # (Manual) 0.9 10^3/uL (0.0-1.0) 05/21/20 05:15 Eosinophils # (Manual) 0.8 10^3/uL (0-0.7) H 05/21/20 05:15 Basophils # (Manual) 0.2 10^3/uL (0-0.1) H 05/21/20 05:15 Differential Comment MANUAL DIFFERENTIAL 05/21/20 05:15 WBC Morphology NORMAL APPEARANCE (NORMAL) 05/21/20 05:15 Platelet Estimate NORMAL (130-450,000) (NORMAL) 05/21/20 05:15 Platelet Morphology NORMAL APPEARANCE (NORMAL) 05/21/20 05:15 RBC Morph Micro Appear NORMAL APPEARANCE (NORMAL) 05/21/20 05:15 Sodium 138 mmol/L (135-145) 05/21/20 05:15 Potassium 3.6 mmol/L (3.5-5.0) 05/21/20 05:15 Chloride 98 mmol/L (101-111) L 05/21/20 05:15 Carbon Dioxide 28 mmol/L (21-32) 05/21/20 05:15 Anion Gap 12.0 (6-13) 05/21/20 05:15 BUN 17 mg/dL (6-20) 05/21/20 05:15 Creatinine 0.6 mg/dL (0.4-1.0) 05/21/20 05:15 Estimated GFR (MDRD) 98 (>89) 05/21/20 05:15 Glucose 113 mg/dL (70-100) H 05/21/20 05:15 Lactic Acid 1.8 mmol/L (0.5-2.2) 05/17/20 13:59 Calcium 8.8 mg/dL (8.5-10.3) 05/21/20 05:15 Magnesium 2.4 mg/dL (1.7-2.8) 05/18/20 04:25 Total Bilirubin 0.4 mg/dL (0.2-1.0) 05/17/20 08:03 AST 50 IU/L (10-42) H 05/17/20 08:03 ALT 37 IU/L (10-60) 05/17/20 08:03 Alkaline Phosphatase 59 IU/L (42-121) 05/17/20 08:03 Total Creatine Kinase 360 IU/L (22-269) H 05/17/20 08:03 Troponin I High Sens 30.7 ng/L (2.3-14.8) H* 05/17/20 13:59 B-Natriuretic Peptide 96 pg/mL (5-100) 05/21/20 05:15 Total Protein 6.8 g/dL (6.7-8.2) 05/17/20 08:03 Albumin 3.4 g/dL (3.2-5.5) 05/17/20 08:03 Globulin 3.4 g/dL (2.1-4.2) 05/17/20 08:03 Albumin/Globulin Ratio 1.0 (1.0-2.2) 05/17/20 08:03 Lipase 26 U/L (22-51) 05/17/20 08:03 TSH 2.07 uIU/mL (0.34-5.60) 05/18/20 04:25 Urine Color YELLOW 05/17/20 09:40 Urine Clarity CLEAR (CLEAR) 05/17/20 09:40 Urine pH 7.5 PH (5.0-7.5) 05/17/20 09:40 Ur Specific [place] 1.010 (1.002-1.030) 05/17/20 09:40 Urine Protein NEGATIVE mg/dL (NEGATIVE) 05/17/20 09:40 Urine Glucose (UA) NEGATIVE mg/dL (NEGATIVE) 05/17/20 09:40 Urine Ketones NEGATIVE mg/dL (NEGATIVE) 05/17/20 09:40 Urine Occult Blood NEGATIVE (NEGATIVE) 05/17/20 09:40 Urine Nitrite NEGATIVE (NEGATIVE) 05/17/20 09:40 Urine Bilirubin NEGATIVE (NEGATIVE) 05/17/20 09:40 Urine Urobilinogen 0.2 (NORMAL) E.U./dL (NORMAL) 05/17/20 09:40 Ur Leukocyte Esterase TRACE (NEGATIVE) H 05/17/20 09:40 Urine RBC None Seen /HPF (0-5) 05/17/20 09:40 Urine WBC 6-10 /HPF (0-5) H 05/17/20 09:40 Ur Squamous Epith Cells FEW Squamous (<= Few) 05/17/20 09:40 Urine Bacteria Rare /HPF (None Seen) 05/17/20 09:40 Ur Microscopic Review INDICATED 05/17/20 09:40 Urine Culture Comments INDICATED 05/17/20 09:40 Salicylates < 6.0 mg/dL 05/17/20 08:03 Urine Opiates Screen NEGATIVE (NEGATIVE) 05/17/20 09:40 Ur Oxycodone Screen NEGATIVE (NEGATIVE) 05/17/20 09:40 Urine Methadone Screen NEGATIVE (NEGATIVE) 05/17/20 09:40 Ur Propoxyphene Screen NEGATIVE (NEGATIVE) 05/17/20 09:40 Acetaminophen < 10 ug/mL (10-30) L 05/17/20 08:03 Ur Barbiturates Screen POSITIVE (NEGATIVE) H 05/17/20 09:40 Ur Tricyclics Screen NEGATIVE (NEGATIVE) 05/17/20 09:40 Ur Phencyclidine Scrn NEGATIVE (NEGATIVE) 05/17/20 09:40 Ur Amphetamine Screen NEGATIVE (NEGATIVE) 05/17/20 09:40 U Methamphetamines Scrn NEGATIVE (NEGATIVE) 05/17/20 09:40 U Benzodiazepines Scrn NEGATIVE (NEGATIVE) 05/17/20 09:40 Urine Cocaine Screen NEGATIVE (NEGATIVE) 05/17/20 09:40 U Cannabinoids Screen NEGATIVE (NEGATIVE) 05/17/20 09:40 Coronavirus (PCR) NEGATIVE 05/20/20 12:30
[2020-05-21] MEDS ORDERED: levoFLOXacin 250 MG TABLET PO SCH (18:52)
[2020-05-21] MEDS: ARIPiprazole 5 MG TABLET PO SCH (20:55)
[2020-05-21] MEDS: traZODone 50 MG TABLET PO SCH (20:56)
[2020-05-22] MEDS: PANTOPRAZOLE 40 MG TABLET PO SCH (06:48)
[2020-05-22 08:25] VITALS: BP 111/49
[2020-05-22] MEDS: LACTOBACILLUS RHAMNOSUS GG CAPSULE PO SCH (08:40)
[2020-05-22] MEDS: APIXABAN 5 MG TABLET PO SCH (08:41)
[2020-05-22] MEDS: lisinopriL 5 MG TABLET PO SCH (08:41)
[2020-05-22] MEDS: METOPROLOL SUCCINATE 25 MG TABLET PO SCH (08:41)
[2020-05-22] MEDS: PRIMIDONE 50 MG TABLET PO SCH (08:42)
[2020-05-22] MEDS: NYSTATIN POWDER 15 GM TOP SCH (08:43)
[2020-05-22] MEDS: SODIUM CHLORIDE FLUSH 0.9% 10 ML SYRINGE IVP SCH (08:44)
[2020-05-22] MEDS: BUMETANIDE 1 MG TABLET PO SCH (08:58)
--- NOTE | 2020-05-22 09:24 | Discharge Plan ---
"Discharge Plan for SNF / [facility] - Discharge Plan And Transition Orders Problem Reviewed?: Yes Disposition: 03 SNF DC/Xfer Condition: Stable Allergies and Adverse Reactions: Allergies Allergy/AdvReac Type Severity Reaction Status Date / Time phenobarbital Allergy Intermediate Anxiety Verified 05/17/20 07:56 econazole Allergy Unknown Verified 05/17/20 07:56 Penicillins Allergy swelling Verified 05/17/20 07:56 Sulfa (Sulfonamide Allergy Rash Verified 05/17/20 07:56 Antibiotics) Tetracyclines Allergy Anxiety Verified 05/17/20 07:56 Health Concerns: Admitted with profound weakness, urinary incontinence, and found to have a UTI. Blood cultures and urine cultures were negative. She is completing a course of empiric antibiotics. She is participating in PT for strengthening and is being discharged to SNF for PT and OT rehab. Plan of Treatment: Complete antibiotics. Strengthening with PT and OT. Resume all her usual prehospital medications. Care Goals: Improvement in symptoms and stabilization are the goals. Assessment: Instructions provided to the SNF. - SNF / [facility] Transition Orders Admit to (Facility): [facility] Discharge Diagnosis: 1) Profound weakness 2) UTI 3) Schizophrenia 4) Depression and anxiety 5) Atrial fibrillation with RVR 6) Seizure disorder 7) Congestive heart failure, LVEF 50%, down from 60% in past 8) Urinary incontinence, 9) HTN 10) Hx asthma 11) Hx hyperthyroidism 12) Chronic bilateral lower extremity lymphedema 13) Osteoarthritis 14) CODE STATUS: Full Code Medicare Certification Statement: I certify that Post Hospital half-way care is medically necessary on a continuing basis for any of the conditions for which she/he is receiving care during hospitalization. Notify PCP of admission and forward orders to primary provider for signature. Weight on admission and: Weekly Call PCP immediately if weight increases by: 5 kg Other Notification Orders: Call PCP immediately if patient develops dyspnea, chest pain/tightness or edema. House Bowel Program: Yes Additional Bowel Program Orders: If no BM after 2 days, nurse may give M.O.M. 30ml PO PRN and/or ducolax Supp 1 AR and/or ZACKARY 250mg P.O., and/or senna 1-2 tabs PO. On day 3 nurse may give repeat above order until residents constipation is resolved. Annual Influenza Vaccine (between Apr 25 and November 22): Yes Two-step PPD per [facility] [phone] or approved exception documents: Yes Treatments & Other Orders: Daily PT and OT Medication Orders: PLEASE REFER TO THE DISCHARGE MEDICATION LIST. Insulin Orders?: No - Medications New Prescriptions: Apixaban [Eliquis] 5 mg PO BID #60 tablet levoFLOXacin [Levaquin] 500 mg PO HS #3 tablet Metoprolol Succinate [Toprol Xl] 25 mg PO BID #60 tablet lisinopriL [Zestril] 2.5 mg PO DAILY #30 tablet - Diet Type: Geriatric Texture: Regular Liquids: Thin May have monthly special meal: Yes - Therapies | Activity Therapy: Evaluation | Treat if indicated: PT, OT Rehabilitation Potential: Maximize functional status Activity: Activity as Tolerated Weight Bearing: Full Weight Assistance Devices: Walker Follow Up: See PCP after discharge from SNF."
--- NOTE | 2020-05-22 11:06 | DISCHARGE SUMMARY ---
Discharge Summary Admit Date: 05/17/20 Discharge Date: 05/22/20 Discharging Provider: Dr Silvia Monroy Primary Care Provider: Dr David Chambers Code Status: Attempt Resuscitation Condition at Discharge: Stable Discharge Disposition: SNF DC/Xfer Discharge Facility Name: [facility] History of Present Illness: From the admission H&P of Reginaldo Estrada NP: This is a 74-year-old woman with history of psychiatric Schizophrenia disorders, Depression, anxiety, obesity, Osteoarthritis, atrial fibrillation, Seizure disorder, asthma, urinary incontinence, congestive heart failure, hypertension, valve disease, hyperthyroidism, gastric ulcer, chronic bilateral lower extremity lymphedema who present presents with profound weakness. She was seen here 3 days ago, diagnosed with a UTI and pt was started on cefdinir. She report she has been compliant with that medication. She report she has not been able to walk to due to very weakness for the last 3 days. She report she still has urinary incontinency "something is moving, I can feel". she report she had Pedal edema is not increased as her usual. She complain of mild cough and report she had some shortness of breath on and off, but she denies shortness of breath today, chest pain, fever, chill. Routine laboratory tests do show patient had elevated lactic acid at 3.5. High-sensitivity troponin test showed 27. Urinalysis review elevated esterase and WBC 710. chest x-ray show mild pulmonary vascular congestion and trace left pleural effusion, no definition focal infiltration or pneumothorax. Patient is admitted for further medical management. Discussed the care goal with the patient, patient request full code. - HOSPITAL COURSE Hospital Course: 1) Profound weakness This was felt to be secondary to UTI, A. fib with RVR and general deconditioning. She had treatment of the infection. She was seen by physical therapy and had improvement and was deemed a candidate for rehab at SNF. She was discharged to SNF after being tested for COVID and was negative 2) UTI Urinalysis was abnormal. The urinary culture however grew nothing and blood cultures were negative to date. She received empiric IV Levaquin then was gilbert sitioned to oral Levaquin to take for 3 more days after discharge. 3) Urinary incontinence As per history. 4) Systolic heart failure, acute on chronic LVEF 50% At mid hospitalization, she was short of breath, CXR showed CHF. The CHF exacerbation was felt to be due to poorly controlled heart rate in [facility]. She underwent an Echo that showed LVEF mildly depressed at 50%. Some of her medications were adjusted for this heart failure and for the heart rate control (see below). 5) Atrial fibrillation with RVR Patient had heart rates as high as 130 to 140 in [facility]. She did not feel this. She was on Propranolol before this admission. This was changed to metoprolol succinate while here. At discharge her heart rate was under 100. This patient had a CHADS score of greater than 2, and she was started on Eliquis and discharged with this new prescription. 6) HTN Her blood pressure was controlled with the current medications. 7) Chronic bilateral lower extremity lymphedema She was kept on chronic diuretics. 8) Schizophrenia She was kept on her Abilify and her psychiatric meds. 9) Depression and anxiety She was kept on her antidepressants. 10) Seizure disorder She was kept on her usual seizure medications. 11) Hx asthma There was no wheezing and she is not on any active inhaler treatment. 12) Hx hyperthyroidism As per remote history. Presumably the Propranolol had been chosen for this diagnosis. 13) Osteoarthritis She was continued on her pain meds for arthritis. - ALLERGIES Allergies/Adverse Reactions: Allergies Allergy/AdvReac Type Severity Reaction Status Date / Time phenobarbital Allergy Intermediate Anxiety Verified 05/17/20 07:56 econazole Allergy Unknown Verified 05/17/20 07:56 Penicillins Allergy swelling Verified 05/17/20 07:56 Sulfa (Sulfonamide Allergy Rash Verified 05/17/20 07:56 Antibiotics) Tetracyclines Allergy Anxiety Verified 05/17/20 07:56 - MEDICATIONS Home Medications: Ambulatory Orders Medication Instructions Recorded Confirmed Primidone 250 mg PO BID 03/23/13 05/17/20 Aripiprazole [Abilify] 30 mg PO DAILY PM 04/28/14 05/17/20 Bumetanide 10 mg PO DAILY 12/18/18 05/17/20 Folic Acid 1 mg PO DAILY 12/18/18 05/17/20 Calcium Carbonate/Vitamin D3 1 tab PO DAILY 03/01/19 05/17/20 [Calcium 600-Vit D3 800 Caplet] Cyanocobalamin (Vitamin B-12) 1 tab PO DAILY 03/01/19 05/17/20 [Vitamin B-12] Magnesium 1 tab PO DAILY 03/01/19 05/17/20 Mupirocin 1 applic TD DAILY 03/01/19 05/17/20 Nystatin 1 applic TD DAILY 03/01/19 05/17/20 Isosorbide Mononitrate ER [Imdur] 30 mg PO DAILY 05/17/20 05/17/20 Potassium Chloride [Klor-Con 10] 10 meq PO DAILY 05/17/20 05/17/20 Apixaban [Eliquis] 5 mg PO BID #60 tablet 05/22/20 Lactobacillus Rhamnosus GG 1 cap PO DAILY capsule 05/22/20 [Culturelle] Metoprolol Succinate [Toprol Xl] 25 mg PO BID #60 tablet 05/22/20 Zinc Oxide 20% Oint [Zinc Oxide] 1 applic TOP PRN PRN tube 05/22/20 levoFLOXacin [Levaquin] 500 mg PO HS #3 tablet 05/22/20 lisinopriL [Zestril] 2.5 mg PO DAILY #30 tablet 05/22/20 - PHYSICAL EXAM AT DISCHARGE General Appearance: positive: No acute distress, Alert Eyes Bilateral: positive: Normal inspection, EOMI ENT: positive: ENT inspection nml, No signs of dehydration Neck: positive: Nml inspection, No JVD Respiratory: positive: No respiratory distress Cardiovascular: positive: No murmur, Irregularly irregular Abdomen: positive: Non-tender, No distention Skin: positive: Warm, Dry Extremities: positive: Other (1+ edema) Neurologic/Psychiatric: positive: Motor nml, Disoriented to time - LABS Result Diagrams: 05/21/20 05:15 05/21/20 05:15 - DIAGNOSTIC IMAGING Diagnostic Imaging Results: Final report reviewed - FOLLOW UP Follow Up: See PCP after discharge from SNF. - TIME SPENT Time Spent in Discharge (Minutes): 60
== END 2020-05-22 10:20 | DRG 689 ==
LOC: EDUNIT# → ED 07:42 → MS3 10:47 → MS2 05-18 20:01
PROVIDERS: ADMIT Nurse Practitioner Gerontology; ATTEND Internal Medicine
DX: N39.0 Urinary tract infection, site not specified (principal); E87.2 Acidosis; I50.23 Acute on chronic systolic (congestive) heart failure; I50.9 Heart failure, unspecified; J45.909 Unspecified asthma, uncomplicated; I38 Endocarditis, valve unspecified; Z68.41 Body mass index [BMI] 40.0-44.9, adult; I11.0 Hypertensive heart disease with heart failure; I48.91 Unspecified atrial fibrillation; R53.1 Weakness; I89.0 Lymphedema, not elsewhere classified; E66.9 Obesity, unspecified; E05.90 Thyrotoxicosis, unspecified without thyrotoxic crisis or storm; G40.909 Epilepsy, unspecified, not intractable, without status epilepticus; F20.9 Schizophrenia, unspecified; F32.9 Major depressive disorder, single episode, unspecified; F41.9 Anxiety disorder, unspecified; R32 Unspecified urinary incontinence; M19.90 Unspecified osteoarthritis, unspecified site; Z74.09 Other reduced mobility; Z20.828 Contact with and (suspected) exposure to other viral communicable diseases; Z79.899 Other long term (current) drug therapy
CPT/HCPCS: 36415; 51701; 71045; 80048; 80053; 81001; 82550; 83605; 83690; 83735; 83880; 84443; 84484; 85025; 87040; 87086; 93005; 93306; 97110; 97162; 97166; 97530; 99284; A6250; A9270; J1650; U0004; 80306; 80307; 80329; 81003

== ENCOUNTER 2020-05-22 10:28 | Outpatient (CLI) | payer MEDICARE, MEDICAID | END 2020-05-22 10:29 | LOC: EMS 10:28 | PROVIDERS: ATTEND Surgery | DX: Z74.01 Bed confinement status (principal) | CPT/HCPCS: A0425; A0428 ==